=== PATIENT | female | born 1955 | race Caucasian/White ===

== ENCOUNTER 2016-06-19 16:22 | Observation (INO) | payer OTHER ==
--- NOTE | 2016-06-19 16:34 | EDPHY ---
H & P Time Seen by Provider: 06/19/16 16:26 HPI/ROS: HPI Chest tightness, shortness of breath. 61-year-old female by private vehicle. History of atrial fibrillation. Currently on Xarelto. Patient presents complaining of intermittent episodes of chest pressure and squeezing with associated shortness of breath. She has had this over the last 3-4 days. She has had this several times in the past. She currently takes Xarelto, metoprolol and Lasix. ROS: Constitutional: No fever, no chills. No weakness. Eyes: No discharge. No changes in vision. ENT: No sore throat. No nasal congestion or rhinorrhea. Respiratory: No cough. As above. Cardiac: As above, no palpitations. Gastrointestinal: No abdominal pain, no vomiting, no diarrhea. Genitourinary: No hematuria. No dysuria or increased frequency with urination. Musculoskeletal: No back pain. No neck pain. No myalgias or arthralgias. Skin: No rashes. Neurological: No headache. No focal weakness or altered sensation. Past medical history: Heart failure, schizophrenia, atrial fibrillation, uncontrolled diabetes. Noncompliance with medications and care. Hypertension, CVA without residual affects. Social history: Physical Exam: General Appearance: Alert, flat affect. This patient is responding to questions appropriately and in full sentences. This patient appears well- hydrated and well-nourished. Eyes: Pupils equal and round no pallor or injection. No lid edema, erythema or injection. Respiratory: There are no retractions, lungs are clear to auscultation with good air movement bilaterally. Cardiovascular: Irregular tachycardia. No murmur. Gastrointestinal: Abdomen is soft and nontender, no masses, bowel sounds normal. No focal tenderness at McBurney's point. No Campa sign. Neurological: Motor sensory function is grossly intact. Cranial nerves are normal. Gait is normal. Skin: Warm and dry, no rashes. Musculoskeletal: Neck is supple and nontender. Extremities are symmetrical. All joints range without pain or impingement. Psychiatric: No agitation. No depression. Database: EKG: EKG time is 4:52 p.m., EKG shows a narrow complex atrial fibrillation with rapid ventricular response rate of 133. Probable left ventricular hypertrophy. T-wave flattening and inversion noted in 2, 3, AVF, T-wave inversions in the lateral precordial leads V4, V5 and V6. Interpreted by me. Imaging: Chest x-ray PA and lateral; chronic CHF with interstitial pulmonary edema. No focal infiltrate. No pneumothorax. Interpreted by me. Procedures: Emergency department course: IV placed. Patient placed on a concreting supervisor. Patient started on IV normal saline with 250 cc to be given over the next hour. EKG performed. Patient given 324 mg of chewed aspirin. Patient will be given IV metoprolol and 5 mg boluses up 2 x 3 for rate control followed by 25 mg of oral metoprolol. She is currently taking metoprolol. 5:55 p.m., patient re-evaluated. Resting comfortably at this time. She has had 2 doses of IV metoprolol. Ventricular rate is now down to 105-107. She will be given a 3rd dose followed by 25 mg orally. Results of her diagnostic studies were discussed with her. She is significantly hyperglycemic but without acidosis. Her glucose is in the 600's. She was given 10 units of IV regular insulin. Plan for admission reviewed. All of her questions were answered. 6:30 p.m., spoke with hospitalist. Case discussed in detail. Patient accepted for admission to the hospitalist service. Patient admitted in stable and improved condition. Differential Diagnosis: The differential diagnosis on this patient includes but is not limited to atrial fibrillation with rapid ventricular response, acute coronary syndrome, DKA, pulmonary embolism, congestive heart failure. This represents a partial list of diagnoses considered. These considerations are based on history, physical exam, past history, reassessment and diagnostic testing. Smoking Status: Current every day smoker Constitutional: Initial Vital Signs Temperature (C) 36.7 C 06/19/16 16:26 Heart Rate 107 H 06/19/16 16:26 Respiratory Rate 18 06/19/16 16:26 Blood Pressure 143/115 H 06/19/16 16:26 O2 Sat (%) 96 06/19/16 16:26 O2 Delivery Mode Room Air Allergies/Adverse Reactions: morphine Allergy (Unknown, Verified 05/16/16 02:14) fluoxetine HCl [From Prozac] Allergy (Verified 05/16/16 02:14) risperidone [From Risperdal] Allergy (Verified 05/16/16 02:14) Sulfa (Sulfonamide Antibiotics) Allergy (Verified 05/16/16 02:14) Home Medications: Medication Instructions Recorded Furosemide [Lasix 40 MG (*)] 40 mg PO DAILY PRN #30 tab 06/20/16 Insulin Detemir [Levemir] 10 unit SQ HS #2 vial 06/20/16 Metoprolol Succinate Xr [Toprol Xl 25 mg PO DAILY #30 tab 06/20/16 25 mg (*)] Rivaroxaban [Xarelto] 20 mg PO DAILY #30 tab 06/20/16 Medical Decision Making - Data Points Laboratory Results: Laboratory Results 06/19/16 16:55 06/19/16 16:55 Medications Given: Discontinued Medications Aspirin (Aspirin) 324 mg PO EDNOW ONE Stop: 06/19/16 16:45 Last Admin: 06/19/16 17:00 Dose: 324 mg Sodium Chloride (Ns) 500 mls @ 0 mls/hr IV ONCE ONE PRN Reason: As Directed Stop: 06/19/16 16:45 Last Admin: 06/19/16 17:05 Dose: 500 mls Insulin Human Lispro (Humalog Lispro) 8 unit SC ONCE ONE Stop: 06/20/16 05:31 Last Admin: 06/20/16 06:06 Dose: 8 units Insulin Human Regular (Humulin R) 10 unit IVP EDNOW ONE Stop: 06/19/16 18:36 Last Admin: 06/19/16 18:54 Dose: 10 unit Metoprolol Tartrate (Lopressor Injection) 5 mg IVP Q5M MARCELLA Stop: 06/19/16 17:41 Last Admin: 06/19/16 18:00 Dose: 5 mg Metoprolol Tartrate (Lopressor) 25 mg PO EDNOW ONE Stop: 06/19/16 18:36 Last Admin: 06/19/16 18:53 Dose: 25 mg Potassium Chloride (Protocol Potassium) 1 dose MISC AD PRN; Protocol PRN Reason: Pt on Electrolyte Protocol Stop: 12/17/16 02:14 Last Admin: 06/20/16 03:14 Dose: 1 dose Potassium Chloride (Klor-Con) 40 meq PO ONCE ONE Stop: 06/20/16 04:01 Last Admin: 06/20/16 03:30 Dose: 40 meq Departure - Departure Disposition: [facility] Acute Clinical Impression: Dyspnea, Chest discomfort, Acute exacerbation of congestive heart failure, Atrial fibrillation with RVR, Hyperglycemia without ketosis, Elevated troponin
[2016-06-19] MEDS ORDERED: ASPIRIN 81 MG CHEWABLE TAB PO ONE (16:44)
[2016-06-19] MEDS ORDERED: NS 500 ML IV ONE (16:44)
--- NOTE | 2016-06-19 16:54 | CPEKG ---
Heart Rate: 133 RR Interval: 451 QRSD Interval: 84 QT Interval: 316 QTC Interval: 471 QRS [place]: 93 T Wave [place]: 192 EKG Severity - ABNORMAL ECG - EKG Impression: ATRIAL FIBRILLATION EKG Impression: RIGHT AXIS DEVIATION EKG Impression: CONSIDER LEFT VENTRICULAR HYPERTROPHY EKG Impression: ABNORMAL T, CONSIDER ISCHEMIA, ANT-LAT LEADS Electronically Signed By: Leonora Billings 19-Jun-2016 20:49:51
[2016-06-19 17:11] LABS: % IMMATURE GRANULYOCYTES 0.2 % (0.0-1.1); ABSOLUTE IMMATURE GRANULOCYTES 0.02 10^3/uL (0.00-0.10); ADD DIFF? NO; ADD MORPH? NO; ADD SCAN? NO; ATYPICAL LYMPHOCYTE FLAG 10 (0-99); FRAGMENT RBC FLAG 0 (0-99); HEMATOCRIT 43.2 % (38.0-47.0); LEFT SHIFT FLG 0 (0-99); LIPEMIA HEMOLYSIS FLAG 80 (0-99); MEAN CELL HEMOGLOBIN 29.1 pg (27.9-34.1); MEAN CELL HEMOGLOBIN CONCENTR. 32.4 g/dL (32.4-36.7); MEAN CELL VOLUME 89.8 fL (81.5-99.8); MEAN PLATELET VOLUME 11.8 fL (8.7-11.7); PLATELET CLUMPS FLAG 0 (0-99); PLATELET COUNT 225 10^3/uL (150-400); RED BLOOD CELL COUNT 4.81 10^6/uL (4.18-5.33); RED CELL DISTRIBUTION WIDTH 14.2 % (11.5-15.2)
--- NOTE | 2016-06-19 17:15 | DX ---
Portable Chest, 17:01 Clinical Indications: Chest pain Comparison: May 16, 2016 Findings: Cardiomegaly with interstitial lung disease (possibly interstitial pulmonary edema) remain s. There is no alveolar pulmonary edema, focal infiltrate or consolidation. There is no mass or adeno jaye. Impression: Suspect chronic CHF with interstitial pulmonary edema. Please note that the patient had a n ejection fraction of 36% on May 17, 2016.
[2016-06-19 17:27] LABS: APTT 29.2 SEC (23.0-38.0); INR 1.63 (0.83-1.16); PROTIME(PATIENT) 19.4 SEC (12.0-15.0)
[2016-06-19 17:30] LABS: ANION GAP 12 mEq/L (8-16); CALCIUM 9.3 mg/dL (8.5-10.4); CARBON DIOXIDE 25 mEq/l (22-31); CHLORIDE 97 mEq/L (97-110); CREATININE 0.6 mg/dL (0.6-1.0); GLOMERULAR FILTRATION RATE > 60; POTASSIUM 4.2 mEq/L (3.5-5.2); SODIUM 134 mEq/L (134-144)
[2016-06-19] MEDS: METOPROLOL TARTRATE 5 MG/5 ML INJ IVP SCH ×3 (17:30→18:00)
[2016-06-19 17:42] LABS: TROPONIN I 0.062 ng/mL (0-0.034)
[2016-06-19 17:58] LABS: GLUCOSE 626 mg/dL (70-100)
[2016-06-19] MEDS ORDERED: INSULIN REGULAR HUMAN 100 UNIT/ML IVP ONE (18:35)
[2016-06-19] MEDS ORDERED: METOPROLOL TARTRATE 25 MG TAB PO ONE (18:35)
[2016-06-19 20:52] VITALS: RESP 18
[2016-06-19] MEDS ORDERED: ONDANSETRON DISINTEGRATING 4 MG TAB PO PRN (23:06)
[2016-06-19] MEDS ORDERED: ONDANSETRON 4 MG/2 ML VIAL IVP PRN (23:06)
[2016-06-19] MEDS ORDERED: ACETAMINOPHEN 325 MG TAB PO PRN (23:06)
[2016-06-19] MEDS ORDERED: HYDROCODONE/APAP 5/325 TAB PO PRN (23:06)
[2016-06-19] MEDS ORDERED: ALBUTEROL 3 ML DEYVIAL IH PRN (23:06)
[2016-06-19] MEDS ORDERED: FUROSEMIDE 40 MG TAB PO PRN (23:08)
[2016-06-19] MEDS ORDERED: D50W 25 GM/50 ML SYR IVP PRN (23:10)
--- NOTE | 2016-06-20 00:10 | CPEKG ---
Heart Rate: 83 RR Interval: 723 QRSD Interval: 94 QT Interval: 392 QTC Interval: 461 QRS [place]: 100 T Wave [place]: 221 EKG Severity - ABNORMAL ECG - EKG Impression: ATRIAL FIBRILLATION EKG Impression: RIGHT AXIS DEVIATION EKG Impression: CONSIDER LEFT VENTRICULAR HYPERTROPHY EKG Impression: ABNORMAL T, PROBABLE ISCHEMIA, ANT-LAT LEADS Electronically Signed By: Monster Torres 20-Jun-2016 17:24:12
[2016-06-20] MEDS ORDERED: PROTOCOL POTASSIUM 1 DOSE MISC PRN (02:15)
[2016-06-20 03:09] LABS: % IMMATURE GRANULYOCYTES 0.1 % (0.0-1.1); ABSOLUTE IMMATURE GRANULOCYTES 0.01 10^3/uL (0.00-0.10); ADD DIFF? NO; ADD MORPH? NO; ADD SCAN? NO; ATYPICAL LYMPHOCYTE FLAG 10 (0-99); FRAGMENT RBC FLAG 0 (0-99); HEMATOCRIT 36.2 % (38.0-47.0); HEMOGLOBIN 11.7 g/dL (12.6-16.3); LEFT SHIFT FLG 0 (0-99); LIPEMIA HEMOLYSIS FLAG 80 (0-99); MEAN CELL HEMOGLOBIN 29.3 pg (27.9-34.1); MEAN CELL HEMOGLOBIN CONCENTR. 32.3 g/dL (32.4-36.7); MEAN CELL VOLUME 90.5 fL (81.5-99.8); MEAN PLATELET VOLUME 11.6 fL (8.7-11.7); PLATELET CLUMPS FLAG 20 (0-99); PLATELET COUNT 179 10^3/uL (150-400)
[2016-06-20] MEDS ORDERED: POTASSIUM CL 20 MEQ TAB ONE (03:09)
[2016-06-20 03:18] LABS: INR 1.36 (0.83-1.16); PROTIME(PATIENT) 16.8 SEC (12.0-15.0)
[2016-06-20 03:19] LABS: APTT 25.6 SEC (23.0-38.0)
[2016-06-20 03:29] LABS: GLUCOSE 313 mg/dL (70-100)
--- NOTE | 2016-06-20 03:45 | PDGENHP ---
History and Physical - Chief Complaint chest pain - History of Present Illness Patient is a 61-year-old female with history of schizophrenia, atrial fibrillation, on systemic anticoagulation, systolic CHF (EF 40%), type 2 diabetes uncontrolled and hypertension who presents to the ED complaining of chest pain. Patient states symptoms started this afternoon, describes pressure- like chest pain and palpitations, occasionally associated with shortness of breath. She denies any associated lightheadedness, headache, dizziness, fevers , chills, nausea or vomiting. Given persistence of symptoms, patient decided to come to the ED. She reports that she has been noncompliant with most of her medications including insulin over the last several days. On arrival to the ED patient was in AFib with RVR, but hemodynamically stable and afebrile. Labs revealed normal CBC, hyperglycemia with normal BMP, and troponin was indeterminately elevated. Patient was given IV metoprolol and heart rate improved, and she was admitted to the hospitalist service for further management. History Information - Allergies/Home Medication List Allergies/Adverse Reactions: morphine Allergy (Unknown, Verified 05/16/16 02:14) fluoxetine HCl [From Prozac] Allergy (Verified 05/16/16 02:14) risperidone [From Risperdal] Allergy (Verified 05/16/16 02:14) Sulfa (Sulfonamide Antibiotics) Allergy (Verified 05/16/16 02:14) Home Medications: Furosemide [Lasix 40 MG (*)] 40 mg PO DAILY PRN 06/19/16 [Last Taken 06/19/16 16 :00] I have personally reviewed and updated: family history, medical history, social history, surgical history - Past Medical History Additional medical history: Chronic schizophrenic. Atrial fibrillation. Chronic hypertension. Diabetes type 2. Systolic CHF. History CVA, no residual deficits - Surgical History Reports: no pertinent surgical hx - Family History Additional family history: Mother: Osteoporosis - Social History Smoking Status: Current every day smoker (1/2 pack per day times 20 years) Alcohol Use: None Drug Use: None Additional social history: Patient reports she lives alone in her mother's home. Review of Systems ROS: 10pt was reviewed & negative except for what was stated in HPI & below Physical Exam Temp Pulse Resp BP Pulse Ox 36.8 C 79 18 137/98 H 91 L 06/19/16 22:56 06/19/16 22:56 06/19/16 22:56 06/19/16 22:56 06/19/16 22:56 Constitutional: not in pain, other (Lethargic, but arousable to tactile stimuli) Eyes: PERRL, anicteric sclera, EOMI Ears, Nose, Mouth, Throat: moist mucous membranes, hearing normal, ears appear normal, no oral mucosal ulcers Cardiovascular: no murmur, rub, or gallop, irregularly irregular, pulses symmetric bilaterally, No JVD, No edema Peripheral Pulses: 2+: dorsalis-pedis (R), dorsalis-pedis (L) Respiratory: no respiratory distress, no rales or rhonchi, clear to auscultation Gastrointestinal: normoactive bowel sounds, soft, non-tender abdomen, no palpable masses, No guarding, No rebound Genitourinary: no bladder fullness, no bladder tenderness Skin: warm, normal color, no rashes or abrasions, no fluctuance, No mottled Musculoskeletal: full muscle strength, no muscle tenderness, normal joint ROM, no joint effusions Neurologic: other (Patient lethargic but arousable, CN II-XII grossly intact, strength in all extremities is equal, 5/5, sensation to light touch intact) Lab Data & Imaging Review 06/20/16 02:55 06/20/16 02:55 WBC 6.88 10^3/uL (3.80-9.50) 06/20/16 02:55 RBC 4.00 10^6/uL (4.18-5.33) L 06/20/16 02:55 Hgb 11.7 g/dL (12.6-16.3) L 06/20/16 02:55 POC Hgb 12.9 gm/dL (12.3-15.9) 06/19/16 20:05 Hct 36.2 % (38.0-47.0) L 06/20/16 02:55 POC Hct 38 % (35.5-47.5) 06/19/16 20:05 MCV 90.5 fL (81.5-99.8) 06/20/16 02:55 MCH 29.3 pg (27.9-34.1) 06/20/16 02:55 MCHC 32.3 g/dL (32.4-36.7) L 06/20/16 02:55 RDW 14.0 % (11.5-15.2) 06/20/16 02:55 Plt Count 179 10^3/uL (150-400) 06/20/16 02:55 MPV 11.6 fL (8.7-11.7) 06/20/16 02:55 Neut % (Auto) 58.1 % (39.3-74.2) 06/20/16 02:55 Lymph % (Auto) 31.4 % (15.0-45.0) 06/20/16 02:55 Walker % (Auto) 4.8 % (4.5-13.0) 06/20/16 02:55 Eos % (Auto) 4.7 % (0.6-7.6) 06/20/16 02:55 Baso % (Auto) 0.9 % (0.3-1.7) 06/20/16 02:55 Nucleat RBC Rel Count 0.0 % (0.0-0.2) 06/20/16 02:55 Absolute Neuts (auto) 4.00 10^3/uL (1.70-6.50) 06/20/16 02:55 Absolute Lymphs (auto) 2.16 10^3/uL (1.00-3.00) 06/20/16 02:55 Absolute Monos (auto) 0.33 10^3/uL (0.30-0.80) 06/20/16 02:55 Absolute Eos (auto) 0.32 10^3/uL (0.03-0.40) 06/20/16 02:55 Absolute Basos (auto) 0.06 10^3/uL (0.02-0.10) 06/20/16 02:55 Absolute Nucleated RBC 0.00 10^3/uL (0-0.01) 06/20/16 02:55 Immature Gran % 0.1 % (0.0-1.1) 06/20/16 02:55 Immature Gran # 0.01 10^3/uL (0.00-0.10) 06/20/16 02:55 PT 16.8 SEC (12.0-15.0) H 06/20/16 02:55 INR 1.36 (0.83-1.16) H 06/20/16 02:55 APTT 25.6 SEC (23.0-38.0) 06/20/16 02:55 D-Dimer 0.44 ug/mLFEU (0.00-0.50) 06/19/16 16:55 POC Sodium 142 mEq/L (134-144) 06/19/16 20:05 Sodium 134 mEq/L (134-144) 06/19/16 16:55 POC Potassium 3.2 mEq/L (3.3-5.0) L 06/19/16 20:05 Potassium 4.2 mEq/L (3.5-5.2) 06/19/16 16:55 POC Chloride 102 mEq/L (96-108) 06/19/16 20:05 Chloride 97 mEq/L (97-110) 06/19/16 16:55 Carbon Dioxide 25 mEq/l (22-31) 06/19/16 16:55 Anion Gap 12 mEq/L (8-16) 06/19/16 16:55 POC BUN 14 mg/dL (7-23) 06/19/16 20:05 BUN 16 mg/dL (7-23) 06/19/16 16:55 Creatinine 0.6 mg/dL (0.6-1.0) 06/19/16 16:55 POC Creatinine 0.7 mg/dL (0.6-1.2) 06/19/16 20:05 Estimated GFR > 60 06/19/16 16:55 Glucose 313 mg/dL (70-100) H 06/20/16 02:55 POC Glucose 295 mg/dL (70-100) H 06/19/16 20:05 Calcium 9.3 mg/dL (8.5-10.4) 06/19/16 16:55 Troponin I 0.064 ng/mL (0-0.034) H 06/20/16 00:25 NT-Pro-B Natriuret Pep 1570 pg/mL (0-125) H 06/19/16 16:55 Visualized and Interpreted Chest x-ray results: Yes Chest X-Ray results: no infiltrate, normal Visualized and Interpreted EKG results: Yes EKG additional interpertation: atrial fib with TWI in V4-V6 (old), LVH Assessment & Plan Assessment: Patient is a 61-year-old female with a history of systolic CHF, hypertension, atrial fibrillation, uncontrolled diabetes and chronic schizophrenia who presents to the ED complaining of chest pain, was found to be in AFib with RVR and significantly hyperglycemic. Plan: # chest pain, elevated troponin Patient describes an episode of chest pain prior to arrival which has resolved. Initial EKG is largely unchanged from priors, initial troponin is indeterminately elevated. Will rule out ACS with serial troponins and serial EKGs. Patient had nuclear stress test on 05/19 which was negative. Troponin leak is likely related to demand from tachycardia. # afib with RVR Patient reports to me that she has not been compliant with her home medications , which likely has triggered the RVR. Heart rate was controlled with IV metoprolol and resumption of her home dose. Patient reportedly on Xarelto, will continue this as an patient. # hyperglycemia, uncontrolled diabetes Recent A1c from 05/2016 reveals markedly uncontrolled diabetes, A1c is 14%. Patient reports that she does not take insulin at home because she does not want to. On arrival to the ED patient hyperglycemic to greater than 600, but without anion gap. Will check urinalysis for ketones. Will then resume home insulin regimen. # lethargy, acute encephalopathy Upon my evaluation patient is lethargic but arousable. She does not have any obvious focal deficits, but given on systemic anticoagulation will obtain CT head to rule out any acute intracranial abnormalities. # chronic systolic CHF Patient with mild check a edema of the lower extremities and x-ray evidence of mild pulmonary edema, but respiratory status is stable. Will resume home Lasix dosing and CHF med regimen. TTE from 1 month ago revealed improvement of ejection fraction to about 40%. # chronic schizophrenia Appears stable. # dispo: Admit to inpatient service for greater than 2 midnight stay # gen: NPO DVT ppx; on xarelto Full code
[2016-06-20] MEDS ORDERED: POTASSIUM CL 20 MEQ TAB PO ONE (04:00)
[2016-06-20] MEDS ORDERED: INSULIN LISPRO 100 UNIT/ML SC ONE (05:30)
[2016-06-20] MEDS ORDERED: INSULIN LISPRO 100 UNIT/ML SC SCH (08:00)
--- NOTE | 2016-06-20 08:06 | CT ---
CT Head Without Contrast History: Lethargy. Technique: Soft tissue and bone window evaluation is performed. Dose reduction techniques were utilized. Comparison: Prior exam June 24, 2012. Findings: The head CT is stable and normal. There is no evidence of hemorrhage, midline shift, hydrocephalus, subdural or subarachnoid hemorrhage. There is no intracranial edema. Ventricular size is consistent with the sulci. Skeletal evaluation reveals normally aerated paranasal and mastoid sinuses. Both middle ears are normally aerated. There is no pneumocephalus. Impression: Normal head CT. Results called to extension [id number] at 4:10 a.m. Final results are concordant with the initial interpretation. General information for patients regarding this examination can be found at [email or web address]. If you have questions or comments about this report, please contact me at (hospital) or [phone] (cell). [id number] MTDD
[2016-06-20 08:29] VITALS: BP 135/102; PULSE 82; TEMP 98.3; O2SAT 98
[2016-06-20] MEDS ORDERED: METOPROLOL SUCCINATE XR 25 MG TAB PO SCH (09:00)
[2016-06-20] MEDS ORDERED: RIVAROXABAN 20 MG TAB PO SCH (09:00)
[2016-06-20 09:17] LABS: ANION GAP 6 mEq/L (8-16); CALCIUM 9.1 mg/dL (8.5-10.4); CARBON DIOXIDE 27 mEq/l (22-31); CHLORIDE 108 mEq/L (97-110); CREATININE 0.6 mg/dL (0.6-1.0); GLOMERULAR FILTRATION RATE > 60; GLUCOSE 196 mg/dL (70-100); MAGNESIUM 1.7 mg/dL (1.6-2.3); POTASSIUM 4.1 mEq/L (3.5-5.2); SODIUM 141 mEq/L (134-144)
[2016-06-20 09:27] LABS: TROPONIN I 0.056 ng/mL (0-0.034)
[2016-06-20 09:35] LABS: HEMOGLOBIN A1C 16.1 % (4.0-6.0)
[2016-06-20] MEDS ORDERED: IPRATROPIUM/ALBUTEROL 3 ML DEYVIAL ONE (09:36)
--- NOTE | 2016-06-20 11:08 | PDIAF ---
- Diagnosis Diagnosis: systolic CHF, afib, uncontrolled diabetes, schizophrenia, non- compliance Code Status: Full Code - Medication Management Discharge Medications: Medications to Continue on Transfer Furosemide [Lasix 40 MG (*)] 40 mg PO DAILY PRN #30 tab 06/20/16 [Last Taken Unknown] Insulin Detemir [Levemir] 10 unit SQ HS #2 vial 06/20/16 [Last Taken Unknown] Metoprolol Succinate Xr [Toprol Xl 25 mg (*)] 25 mg PO DAILY #30 tab 06/20/16 [ Last Taken Unknown] Rivaroxaban [Xarelto] 20 mg PO DAILY #30 tab 06/20/16 [Last Taken Unknown] Discharge Medications: Refer to the Discharge Home Medication list for PRN reason. - Orders Services needed: Home Care, Registered Nurse, Master Vending Machine Mechanic (This patient is not taking any of her medications. Very high risk.), Occupational Therapy Home Care Face to Face: I certify that this patient was under my care and that I had the required [id number] encounter meeting the encounter requirements on the discharge day. My findings support the fact that the patient is homebound as defined in CMS Chapter 7 Medicare Benefits Manual 30.1.1, The condition of the patient is such that there exists a normal inability to leave home and consequently, leaving home would require a considerable and taxing effort. Diet Recommendation: sodium restricted, ADA 2200 consistent carb Weigh Patient: daily - Follow Up Care Current Providers and Referrals: eHllen Clark PA [Primary Care Provider] - As per Instructions Uli Phoenix MD [Medical Doctor] -
--- NOTE | 2016-06-21 04:36 | GDS ---
[f rep st] DISCHARGE SUMMARY DISCHARGE DIAGNOSES: 1. Rapid atrial fibrillation due to medication noncompliance. 2. Uncontrolled diabetes. Hemoglobin A1c of 16 due to noncompliance. 3. Chronic systolic congestive heart failure. Ejection fraction 35%. 4. Schizophrenia. 5. Transient chest pain with slight troponin bump due to strain of rapid atrial fibrillation. HISTORY OF PRESENT ILLNESS: The patient is a 61-year-old schizophrenic patient with atrial fibrillat ion and congestive heart failure, ejection fraction 35%. 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 She has a long-standing history of noncompliance and hemoglobin A1c here is 16. We spoke to her pharmacy and she has not refilled her insulin for a year. She was very hyperglycemic but was not in DKA at presentation. She presented in rapid atrial fibrillation likely due to medication non compliance. HOSPITAL COURSE: We started her on her medications as prescribed and she rapidly improved back to ba seline. She did have some transient chest pain and slight troponin bump although repeat stress testi ng was not felt to be needed given the fact she had a negative stress test only 1 month ago. The patient was counseled regarding her noncompliance. She states her reason for not taking her medi cations is that she does not feel any different whether she takes them or not. She was counseled at length regarding the silent nature of some of these conditions until the situation becomes critical. She also has a recent history of recurrent hospitalizations due to this noncompliance. I worked brittney costa with case management to try to improve her support in the outpatient setting. We do have an erin ointment set up for her at [facility] tomorrow morning and hopefully she will attend and get re- initiated on her insulin regimen. We also scheduled close outpatient followup with Dr. Phoenix for [facility] CHF management. DISCHARGE MEDICATIONS: Please see computer record for full detailed list. No new medications were g iven at hospital discharge although she was refilled on her chronic medications includin. Lasix 40 mg p.o. daily as needed. 2. Levemir insulin 10 units subcu at bedtime. 3. Toprol-XL 25 mg p.o. daily. 4. Xarelto 20 mg p.o. daily. ADDITIONAL DISCHARGE INSTRUCTIONS: 1. Follow up with [facility] tomorrow morning at 9 am with Hellen Clark, primary care. 2. Follow up with Dr. Uli Phoenix in Cardiology. 3. I attempted to arrange home health. 4. Continue to follow up monthly for IM Depo antipsychotic medications. Patient was seen and examined by me on the day of discharge. /[id number]/MODL
== END 2016-06-20 14:42 | disposition home health service (06) ==
LOC: INTOOBSV 18:46 → F2W 20:23
PROVIDERS: ADMIT Hospitalist; ATTEND Internal Medicine
DX: I48.91 Unspecified atrial fibrillation (principal); Z91.14 Patient's other noncompliance with medication regimen; I50.22 Chronic systolic (congestive) heart failure; E11.65 Type 2 diabetes mellitus with hyperglycemia; R07.89 Other chest pain; R53.83 Other fatigue; R06.00 Dyspnea, unspecified; R79.89 Other specified abnormal findings of blood chemistry; F20.9 Schizophrenia, unspecified; I42.9 Cardiomyopathy, unspecified; I10 Essential (primary) hypertension; F17.200 Nicotine dependence, unspecified, uncomplicated; Z88.2 Allergy status to sulfonamides; Z79.01 Long term (current) use of anticoagulants; Z86.73 Personal history of transient ischemic attack (TIA), and cerebral infarction without residual deficits; Z82.62 Family history of osteoporosis
CPT/HCPCS: 70450; 71010; 93005; 96361; 96374; 96375; 99285; J1815; 82947-QW

== ENCOUNTER 2016-06-27 16:18 | Emergency (ER) | payer OTHER ==
[2016-06-27] MEDS ORDERED: NS 1,000 ML IV ONE (16:30)
--- NOTE | 2016-06-27 16:38 | EDPHY ---
H & P Time Seen by Provider: 06/27/16 16:22 HPI/ROS: HPI Hyperglycemia. 61-year-old female by private vehicle. This patient has a history of schizophrenia, type 1 diabetes and atrial fibrillation. She has a history of being noncompliant with her medications. She was just admitted to the hospital for complaint of chest pain. She was admitted on June 19 and discharged on June 20. I received a call from her primary care physician Dr. Pickens stating that the patient was very hyperglycemic but not acidotic. Dr. Pickens said that her hemoglobin A1c is 16. Dr. Pickens had given her 40 units total of regular insulin. The patient received 10 units at 12:45 p.m. and another 30 units at 2:30 p.m.. Despite this her blood sugars remained too high to read. Dr. Pilar Romero sent her to the emergency department to have her hyperglycemia treated. Dr. Pickens has arrange for close follow-up in clinic tomorrow to review police her outpatient medication dosing. ROS: Constitutional: No fever, no chills. No weakness. Eyes: No discharge. No changes in vision. ENT: No sore throat. No nasal congestion or rhinorrhea. Respiratory: No cough. No shortness of breath. Cardiac: No chest pain, no palpitations. Gastrointestinal: No abdominal pain, no vomiting, no diarrhea. Genitourinary: No hematuria. No dysuria or increased frequency with urination. Musculoskeletal: No back pain. No neck pain. No myalgias or arthralgias. Skin: No rashes. Neurological: No headache. No focal weakness or altered sensation. Past medical history: Atrial fibrillation with RVR secondary to medication noncompliance, uncontrolled diabetes with history of medication noncompliance, chronic systolic congestive heart failure with an ejection fraction of 35%, schizophrenia. Social history: Smoker. Denies IV drugs or street drugs. Denies alcohol. Lives alone in her mother's home. Physical Exam: General Appearance: Alert, no distress. This patient is responding to questions appropriately and in full sentences. This patient appears well- hydrated and well-nourished. Eyes: Pupils equal and round no pallor or injection. No lid edema, erythema or injection. Respiratory: There are no retractions, lungs are clear to auscultation with good air movement bilaterally. Cardiovascular: Regular rate and rhythm. No murmur. Gastrointestinal: Abdomen is soft and nontender, no masses, bowel sounds normal. No focal tenderness at McBurney's point. No Campa sign. Neurological: Motor sensory function is grossly intact. Cranial nerves are normal. Gait is normal. Skin: Warm and dry, no rashes. Musculoskeletal: Neck is supple and nontender. Extremities are symmetrical. All joints range without pain or impingement. Psychiatric: No agitation. No depression. Database: EKG: Imaging: Procedures: Emergency department course: IV placed. She was placed on a monitor. She was started on IV normal saline with 1 L to be given over the next hour. DKA blood work will be obtained. 4:50 p.m., i-STAT glucose 391, potassium 3.7. Patient will be given 10 units of IV regular insulin and a 1 L of fluid as above and sugar will be rechecked. Dr. Celio welch discussed follow-up. 5:00 p.m., spoke with Dr. Pickens. Electrolytes and plan for IV hydration an additional 10 units of IV regular insulin discussed. Plan for follow-up tomorrow: Patient has an appointment at 8:45 a.m. at [facility]. An RN will meet her at that appointment and have all of her medications plus dosing instructions. She will be prescribed long-acting metformin as well as Lantus at that time. No additional insulin other than noted above will be provided to her tonight. 5:55 p.m., patient re-evaluated. Repeat blood sugar is 259. She feels comfortable being discharged. She understands for follow-up as above. Return to emergency department precautions have been discussed with her. All of her questions were answered. She was discharged in good condition. Differential Diagnosis: The differential diagnosis on this patient includes but is not limited to hyperglycemia without ketoacidosis, dehydration, medication noncompliance. Diabetic ketoacidosis unlikely. This represents a partial list of diagnoses considered. These considerations are based on history, physical exam, past history, reassessment and diagnostic testing. Smoking Status: Current every day smoker Constitutional: Initial Vital Signs Temperature (C) 36.8 C 06/27/16 16:22 Heart Rate 89 06/27/16 16:22 Respiratory Rate 18 06/27/16 16:22 Blood Pressure 102/68 06/27/16 16:22 O2 Sat (%) 95 06/27/16 16:22 O2 Delivery Mode Room Air Allergies/Adverse Reactions: morphine Allergy (Unknown, Verified 05/16/16 02:14) fluoxetine HCl [From Prozac] Allergy (Verified 05/16/16 02:14) risperidone [From Risperdal] Allergy (Verified 05/16/16 02:14) Sulfa (Sulfonamide Antibiotics) Allergy (Verified 05/16/16 02:14) Home Medications: Medication Instructions Recorded Furosemide [Lasix 40 MG (*)] 40 mg PO DAILY PRN #30 tab 06/20/16 Insulin Detemir [Levemir] 10 unit SQ HS #2 vial 06/20/16 Metoprolol Succinate Xr [Toprol Xl 25 mg PO DAILY #30 tab 06/20/16 25 mg (*)] Rivaroxaban [Xarelto] 20 mg PO DAILY #30 tab 06/20/16 Medical Decision Making - Data Points Laboratory Results: Laboratory Results 06/27/16 16:37 06/27/16 16:37 06/27/16 06/27/16 17:36 16:37 WBC 11.45 H 10^3/uL (3.80-9.50) RBC 4.86 10^6/uL (4.18-5.33) Hgb 13.7 g/dL (12.6-16.3) POC Hgb 15.3 gm/dL (12.3-15.9) Hct 43.0 % (38.0-47.0) POC Hct 45 % (35.5-47.5) MCV 88.5 fL (81.5-99.8) MCH 28.2 pg (27.9-34.1) MCHC 31.9 L g/dL (32.4-36.7) RDW 14.3 % (11.5-15.2) Plt Count 270 10^3/uL (150-400) MPV 11.3 fL (8.7-11.7) Neut % (Auto) 76.4 H % (39.3-74.2) Lymph % (Auto) 16.4 % (15.0-45.0) [place] % (Auto) 3.8 L % (4.5-13.0) Eos % (Auto) 2.4 % (0.6-7.6) Baso % (Auto) 0.5 % (0.3-1.7) Nucleat RBC Rel Count 0.0 % (0.0-0.2) Absolute Neuts (auto) 8.75 H 10^3/uL (1.70-6.50) Absolute Lymphs (auto) 1.88 10^3/uL (1.00-3.00) Absolute Monos (auto) 0.43 10^3/uL (0.30-0.80) Absolute Eos (auto) 0.27 10^3/uL (0.03-0.40) Absolute Basos (auto) 0.06 10^3/uL (0.02-0.10) Absolute Nucleated RBC 0.00 10^3/uL (0-0.01) Immature Gran % 0.5 % (0.0-1.1) Immature Gran # 0.06 10^3/uL (0.00-0.10) POC Sodium 138 mEq/L (134-144) Sodium 136 mEq/L (134-144) POC Potassium 3.7 mEq/L (3.3-5.0) Potassium 4.0 mEq/L (3.5-5.2) POC Chloride 98 mEq/L (96-108) Chloride 98 mEq/L (97-110) Carbon Dioxide 25 mEq/l (22-31) Anion Gap 13 mEq/L (8-16) POC BUN 23 mg/dL (7-23) BUN 23 mg/dL (7-23) Creatinine 0.9 mg/dL (0.6-1.0) POC Creatinine 0.8 mg/dL (0.6-1.2) Estimated GFR > 60 Glucose 396 H mg/dL (70-100) POC Glucose 259 H mg/dL 391 H mg/dL (70-100) (70-100) Calcium 9.4 mg/dL (8.5-10.4) Phosphorus 3.4 mg/dL (2.5-4.5) Magnesium 1.9 mg/dL (1.6-2.3) Beta-Hydroxybutyrate 0.21 mmol/L (0.02-0.27) Medications Given: Discontinued Medications Sodium Chloride (Ns) 1,000 mls @ 0 mls/hr IV ONCE ONE PRN Reason: Wide Open Stop: 06/27/16 16:31 Last Admin: 06/27/16 16:48 Dose: 1,000 mls Insulin Human Regular (Humulin R) 10 unit IVP EDNOW ONE Stop: 06/27/16 16:50 Last Admin: 06/27/16 17:03 Dose: 10 i.unit Point of Care Test Results: 06/27/16 06/27/16 16:37 17:36 POC Sodium 138 POC Potassium 3.7 POC Chloride 98 POC BUN 23 POC Creatinine 0.8 POC Glucose 391 H 259 H Departure - Departure Disposition: Home, Routine, Self-Care Clinical Impression: Hyperglycemia, Schizophrenia, Noncompliance with medication regimen, History of diabetes mellitus Condition: Good Instructions: Type 1 Diabetes in Adults (ED) Additional Instructions: Read and follow provided instructions. Follow-up at [facility] tomorrow at 8:45 a.m. as scheduled for your appointment. A nurse will meet you there and have your medications and prescriptions as well as dosing instructions ready for you. This nurse will review all of your medication dosing instructions with you. Take medication as prescribed. Return to the emergency department for worsening symptoms or other serious concerns. Referrals: Hellen Clark PA [Primary Care Provider] - As per Instructions [facility] [Outside] - As per Instructions
[2016-06-27] MEDS ORDERED: INSULIN REGULAR HUMAN 100 UNIT/ML IVP ONE (16:49)
[2016-06-27 16:58] LABS: % IMMATURE GRANULYOCYTES 0.5 % (0.0-1.1); ABSOLUTE IMMATURE GRANULOCYTES 0.06 10^3/uL (0.00-0.10); ADD DIFF? NO; ADD MORPH? NO; ADD SCAN? NO; ATYPICAL LYMPHOCYTE FLAG 10 (0-99); FRAGMENT RBC FLAG 0 (0-99); HEMOGLOBIN 13.7 g/dL (12.6-16.3); LEFT SHIFT FLG 0 (0-99); LIPEMIA HEMOLYSIS FLAG 80 (0-99); MEAN CELL HEMOGLOBIN 28.2 pg (27.9-34.1); MEAN CELL HEMOGLOBIN CONCENTR. 31.9 g/dL (32.4-36.7); MEAN CELL VOLUME 88.5 fL (81.5-99.8); MEAN PLATELET VOLUME 11.3 fL (8.7-11.7); PLATELET CLUMPS FLAG 0 (0-99); PLATELET COUNT 270 10^3/uL (150-400); RED BLOOD CELL COUNT 4.86 10^6/uL (4.18-5.33); RED CELL DISTRIBUTION WIDTH 14.3 % (11.5-15.2)
[2016-06-27 17:05] VITALS: RESP 12; O2SAT 94
[2016-06-27 17:16] LABS: ANION GAP 13 mEq/L (8-16); CALCIUM 9.4 mg/dL (8.5-10.4); CARBON DIOXIDE 25 mEq/l (22-31); CHLORIDE 98 mEq/L (97-110); CREATININE 0.9 mg/dL (0.6-1.0); GLOMERULAR FILTRATION RATE > 60; GLUCOSE 396 mg/dL (70-100); MAGNESIUM 1.9 mg/dL (1.6-2.3); SODIUM 136 mEq/L (134-144)
[2016-06-27 17:53] LABS: B-HYDROXYBUTYRATE 0.21 mmol/L (0.02-0.27)
[2016-06-27 18:14] VITALS: BP 134/93; PULSE 95; TEMP 98.6
== END 2016-06-27 18:39 | disposition home or self-care (01) ==
DX: E11.65 Type 2 diabetes mellitus with hyperglycemia (principal); F20.9 Schizophrenia, unspecified; I50.9 Heart failure, unspecified; Z79.4 Long term (current) use of insulin; Z91.14 Patient's other noncompliance with medication regimen
CPT/HCPCS: 96361; 96374; 99284; J1815; 82947-QW

== ENCOUNTER 2016-07-04 03:23 | Inpatient (IN) | payer OTHER ==
[2016-07-04] MEDS ORDERED: IPRATROPIUM/ALBUTEROL 3 ML DEYVIAL ONE (03:38)
[2016-07-04] MEDS ORDERED: IPRATROPIUM/ALBUTEROL 3 ML DEYVIAL IH ONE (03:40)
--- NOTE | 2016-07-04 03:54 | EDPHY ---
HPI/HX/ROS/PE/MDM Narrative: Chief complaint: Cough, shortness of breath HPI: 61-year-old woman with a history of schizophrenia, atrial fibrillation congestive heart failure with unknown ejection fraction 35%. She has recently admitted to this hospital and discharged about a week ago. She states she has been compliant with her medications since that time. She has a history of noncompliance in the past. She is presenting complaining of worsening shortness of breath and cough for the last month. She states that she gets up at night and feels short of breath walks around usually feels better. She has been doing this with since her discharge with this morning was not feeling any better. States that her son has not changed dramatically since she was in the hospital. States she has been going to [facility] for confirmation she has been taking her medications as been getting these every day. Denies any fevers or chills. Has producing a cough but is not looked at the color of her sputum. Nausea or vomiting. No chest pain. No worsening swelling. ROS: 10 point Review of Systems is negative except as noted in the HPI. Past medical history: Atrial fibrillation Diabetes Congestive heart failure with an ejection fraction of 35% Schizophrenia Medications: Lasix 40 mg daily Levemir insulin 10 units at night Toprol XL 25 mg daily Xarelto 20 mg daily Physical exam: Gen: Awake, Alert, No Distress HEENT: Nose: no rhinorrhea Eyes: PERRLA, EOMI Mouth: Moist mucosa Neck: Supple, no JVD Chest: nontender, diffuse expiratory wheezing, diminished breath sounds to bilateral bases, crepitus at the left base Heart: S1, S2 normal, no murmur Abd: Soft, non-tender, no guarding Back: no CVA tenderness, no midline tenderness Ext: 1+ bilateral edema, pitting, non-tender Skin: no rash Neuro: CN II-XII intact, Sensation grossly intact, Strength 5/5 in bilateral upper and lower extremities ED Course: 61-year-old with a history of schizophrenia, atrial fibrillation and CHF presenting with shortness of breath, wheezing, and some rales at the bases. She has some moderate work of breathing. She is tachycardic with atrial fibrillation with RVR with a rate in the 120s. She does have some 1+ pitting edema as well. She has been compliant with her medications for the past week. Will check chemistry, CBC and chest x-ray. Will get albuterol neb. Re- evaluate. Chest x-ray: This PA chest film shows some cephalization. There is no infiltrate. There is no effusion. There is some cardiomegaly. Is largely unchanged from the AP film of a week ago. Patient's oxygen saturations dropped to the mid 80s on room air. She has restarted back up to 1 L nasal cannula. Chest x-ray here showed no significant interval change from her last admission. Does have some mild edema. Case discussed with Dr. Duvall, hospitalist. She will admit to telemetry, observation for further management and care. EC atrial fibrillation with a rate of 117. ST depression in V5 and V6 which could be related to related. No other acute ST or T-wave changes. - Data Points Laboratory Results: Laboratory Results 07/04/16 03:57 07/04/16 03:57 07/04/16 03:57 WBC 7.85 10^3/uL (3.80-9.50) RBC 4.36 10^6/uL (4.18-5.33) Hgb 12.6 g/dL (12.6-16.3) Hct 40.0 % (38.0-47.0) MCV 91.7 fL (81.5-99.8) MCH 28.9 pg (27.9-34.1) MCHC 31.5 L g/dL (32.4-36.7) RDW 14.6 % (11.5-15.2) Plt Count 215 10^3/uL (150-400) MPV 11.3 fL (8.7-11.7) Neut % (Auto) 71.8 % (39.3-74.2) Lymph % (Auto) 17.2 % (15.0-45.0) [place] % (Auto) 6.4 % (4.5-13.0) Eos % (Auto) 3.7 % (0.6-7.6) Baso % (Auto) 0.6 % (0.3-1.7) Nucleat RBC Rel Count 0.0 % (0.0-0.2) Absolute Neuts (auto) 5.64 10^3/uL (1.70-6.50) Absolute Lymphs (auto) 1.35 10^3/uL (1.00-3.00) Absolute Monos (auto) 0.50 10^3/uL (0.30-0.80) Absolute Eos (auto) 0.29 10^3/uL (0.03-0.40) Absolute Basos (auto) 0.05 10^3/uL (0.02-0.10) Absolute Nucleated RBC 0.00 10^3/uL (0-0.01) Immature Gran % 0.3 % (0.0-1.1) Immature Gran # 0.02 10^3/uL (0.00-0.10) Sodium 141 mEq/L (134-144) Potassium 3.8 mEq/L (3.5-5.2) Chloride 104 mEq/L (97-110) Carbon Dioxide 30 mEq/l (22-31) Anion Gap 7 mEq/L (8-16) BUN 25 H mg/dL (7-23) Creatinine 0.6 mg/dL (0.6-1.0) Estimated GFR > 60 Glucose 202 H mg/dL (70-100) Calcium 9.2 mg/dL (8.5-10.4) Troponin I Pending NT-Pro-B Natriuret Pep Pending General Time Seen by Provider: 07/04/16 03:33 Initial Vital Signs: Initial Vital Signs Temperature (C) 36.7 C 07/04/16 03:28 Heart Rate 140 H 07/04/16 03:28 Respiratory Rate 18 07/04/16 03:28 Blood Pressure 130/98 H 07/04/16 03:28 O2 Sat (%) 91 L 07/04/16 03:28 O2 Delivery Mode Room Air O2 (L/minute) 1 Allergies/Adverse Reactions: morphine Allergy (Unknown, Verified 07/04/16 03:27) fluoxetine HCl [From Prozac] Allergy (Verified 07/04/16 03:27) risperidone [From Risperdal] Allergy (Verified 07/04/16 03:27) Sulfa (Sulfonamide Antibiotics) Allergy (Verified 07/04/16 03:27) Home Medications: Medication Instructions Recorded Furosemide [Lasix 40 MG (*)] 40 mg PO DAILY PRN #30 tab 06/20/16 Insulin Detemir [Levemir] 10 unit SQ HS #2 vial 06/20/16 Metoprolol Succinate Xr [Toprol Xl 25 mg PO DAILY #30 tab 06/20/16 25 mg (*)] Rivaroxaban [Xarelto] 20 mg PO DAILY #30 tab 06/20/16 Departure - Departure Disposition: [facility] Inpatient Acute Clinical Impression: CHF (congestive heart failure), Atrial fibrillation with RVR Condition: Fair Referrals: Ramone Mcnulty MD [Primary Care Provider] - As per Instructions
[2016-07-04 04:14] LABS: % IMMATURE GRANULYOCYTES 0.3 % (0.0-1.1); ABSOLUTE IMMATURE GRANULOCYTES 0.02 10^3/uL (0.00-0.10); ADD DIFF? NO; ADD MORPH? NO; ADD SCAN? NO; ATYPICAL LYMPHOCYTE FLAG 20 (0-99); FRAGMENT RBC FLAG 0 (0-99); HEMOGLOBIN 12.6 g/dL (12.6-16.3); LEFT SHIFT FLG 0 (0-99); LIPEMIA HEMOLYSIS FLAG 80 (0-99); MEAN CELL HEMOGLOBIN 28.9 pg (27.9-34.1); MEAN CELL HEMOGLOBIN CONCENTR. 31.5 g/dL (32.4-36.7); MEAN CELL VOLUME 91.7 fL (81.5-99.8); MEAN PLATELET VOLUME 11.3 fL (8.7-11.7); PLATELET CLUMPS FLAG 0 (0-99); PLATELET COUNT 215 10^3/uL (150-400); RED BLOOD CELL COUNT 4.36 10^6/uL (4.18-5.33); RED CELL DISTRIBUTION WIDTH 14.6 % (11.5-15.2)
[2016-07-04 04:22] LABS: ANION GAP 7 mEq/L (8-16); CALCIUM 9.2 mg/dL (8.5-10.4); CARBON DIOXIDE 30 mEq/l (22-31); CHLORIDE 104 mEq/L (97-110); CREATININE 0.6 mg/dL (0.6-1.0); GLOMERULAR FILTRATION RATE > 60; GLUCOSE 202 mg/dL (70-100); POTASSIUM 3.8 mEq/L (3.5-5.2); SODIUM 141 mEq/L (134-144)
[2016-07-04 04:53] LABS: TROPONIN I 0.028 ng/mL (0-0.034)
--- NOTE | 2016-07-04 05:25 | CPEKG ---
Heart Rate: 117 RR Interval: 513 QRSD Interval: 88 QT Interval: 352 QTC Interval: 491 QRS [place]: 87 T Wave [place]: -22 EKG Severity - ABNORMAL ECG - EKG Impression: ATRIAL FIBRILLATION, V-RATE 90-170 EKG Impression: BORDERLINE RIGHT AXIS DEVIATION EKG Impression: CONSIDER LEFT VENTRICULAR HYPERTROPHY EKG Impression: BORDERLINE T ABNORMALITIES, INFERIOR LEADS EKG Impression: BORDERLINE PROLONGED QT INTERVAL Electronically Signed By: Donnie Armendariz 04-Jul-2016 07:08:14
[2016-07-04] MEDS ORDERED: ONDANSETRON 4 MG/2 ML VIAL IVP PRN (05:36)
[2016-07-04] MEDS ORDERED: LORazepam 0.5 MG TAB PO PRN (05:36)
[2016-07-04] MEDS ORDERED: ALBUTEROL 3 ML DEYVIAL IH PRN (05:36)
[2016-07-04] MEDS ORDERED: HYDROCODONE/APAP 5/325 TAB PO PRN (05:36)
[2016-07-04] MEDS ORDERED: ONDANSETRON DISINTEGRATING 4 MG TAB PO PRN (05:36)
[2016-07-04] MEDS ORDERED: D50W 25 GM/50 ML SYR IVP PRN (05:38)
[2016-07-04] MEDS ORDERED: PROTOCOL MAGNESIUM 1 DOSE IV PRN (05:40)
[2016-07-04] MEDS ORDERED: PROTOCOL POTASSIUM 1 DOSE MISC PRN (05:40)
[2016-07-04] MEDS: FUROSEMIDE 40 MG/4 ML VIAL IVP SCH ×4 (06:02→15:18)
[2016-07-04] MEDS: IPRATROPIUM/ALBUTEROL 3 ML DEYVIAL IH SCH ×4 (06:17→21:07)
[2016-07-04 06:29] LABS: MAGNESIUM 1.7 mg/dL (1.6-2.3); POTASSIUM 3.8 mEq/L (3.5-5.2)
[2016-07-04] MEDS ORDERED: POTASSIUM CL 10 MEQ TAB PO ONE ×2 (06:45→19:08)
[2016-07-04] MEDS ORDERED: MAGNESIUM SULF 1 GM/DEXTROSE 100 ML IV ONE (06:45)
[2016-07-04] MEDS: INSULIN LISPRO 100 UNIT/ML SC SCH ×3 (07:59→17:35)
--- NOTE | 2016-07-04 08:06 | PDGENHP ---
History and Physical - Chief Complaint shortness of breath - History of Present Illness Patient is a 61-year-old female with history of schizophrenia, atrial fibrillation, on systemic anticoagulation, systolic CHF (EF 40%), type 2 diabetes uncontrolled and hypertension who presents to the ED complaining of shortness of breath. Patient was recently admitted for chest pain and Afib with rvr due to medication noncompliance, discharged about 2 weeks ago. Since discharge, patient reports compliance with her prescribed medications and goes daily to her outpt clinic for her daily insulin injection. Despite medication compliance, patient states for the past 2 days she has been experiencing increased shortness of breath, orthopnea and cough. She denies any associated fevers, chills, chest pain or palpitations. On arrival to the ED, patient was tachycardic, in afib w rvr to the 140 range, slightly hypoxic on room air. Labs revealed normal CBC, BMP, indeterminant trop and elevated BNP. CXR did not reveal any acute infiltrate, mild cephalization. Patient was then admitted to the hospitalist service for further management. History Information - Allergies/Home Medication List Allergies/Adverse Reactions: morphine Allergy (Unknown, Verified 07/04/16 03:27) fluoxetine HCl [From Prozac] Allergy (Verified 07/04/16 03:27) risperidone [From Risperdal] Allergy (Verified 07/04/16 03:27) Sulfa (Sulfonamide Antibiotics) Allergy (Verified 07/04/16 03:27) I have personally reviewed and updated: family history, medical history, social history, surgical history - Past Medical History Additional medical history: Chronic schizophrenic. Atrial fibrillation. Chronic hypertension. Diabetes type 2. Systolic CHF. History CVA, no residual deficits. Chronic tobacco use - Surgical History Reports: no pertinent surgical hx - Family History Positive for: non-pertinent Additional family history: Mother: Osteoporosis - Social History Smoking Status: Current every day smoker (1/2 PPD daily x > 20 years) Alcohol Use: None Drug Use: None Additional social history: Patient reports she lives alone in her mother's home. Review of Systems ROS: 10pt was reviewed & negative except for what was stated in HPI & below Physical Exam Temp Pulse Resp BP Pulse Ox 36.8 C 95 19 124/82 H 97 07/04/16 07:44 07/04/16 07:44 07/04/16 07:44 07/04/16 07:44 07/04/16 07:44 O2 (L/minute) 2 Constitutional: no apparent distress, appears nourished, not in pain Eyes: PERRL, anicteric sclera, EOMI Ears, Nose, Mouth, Throat: moist mucous membranes, hearing normal, ears appear normal, no oral mucosal ulcers Cardiovascular: no murmur, rub, or gallop, irregularly irregular, pulses symmetric bilaterally, edema (trace b/l lower extremity edema), No JVD Peripheral Pulses: 2+: dorsalis-pedis (R), dorsalis-pedis (L) Respiratory: no respiratory distress, no rales or rhonchi, expiratory wheeze Gastrointestinal: normoactive bowel sounds, soft, non-tender abdomen, no palpable masses Genitourinary: no bladder fullness, no bladder tenderness Skin: warm, normal color, no rashes or abrasions, no fluctuance, No mottled Musculoskeletal: full muscle strength, no muscle tenderness, normal joint ROM, no joint effusions Neurologic: AAOx3, sensation intact bilaterally, CN II-XII Intact, No weakness, No numbness Psychiatric: interacting appropriately, not anxious, not encephalopathic, thought process linear Lab Data & Imaging Review 07/04/16 03:57 07/04/16 05:51 WBC 7.85 10^3/uL (3.80-9.50) 07/04/16 03:57 RBC 4.36 10^6/uL (4.18-5.33) 07/04/16 03:57 Hgb 12.6 g/dL (12.6-16.3) 07/04/16 03:57 Hct 40.0 % (38.0-47.0) 07/04/16 03:57 MCV 91.7 fL (81.5-99.8) 07/04/16 03:57 MCH 28.9 pg (27.9-34.1) 07/04/16 03:57 MCHC 31.5 g/dL (32.4-36.7) L 07/04/16 03:57 RDW 14.6 % (11.5-15.2) 07/04/16 03:57 Plt Count 215 10^3/uL (150-400) 07/04/16 03:57 MPV 11.3 fL (8.7-11.7) 07/04/16 03:57 Neut % (Auto) 71.8 % (39.3-74.2) 07/04/16 03:57 Lymph % (Auto) 17.2 % (15.0-45.0) 07/04/16 03:57 [place] % (Auto) 6.4 % (4.5-13.0) 07/04/16 03:57 Eos % (Auto) 3.7 % (0.6-7.6) 07/04/16 03:57 Baso % (Auto) 0.6 % (0.3-1.7) 07/04/16 03:57 Nucleat RBC Rel Count 0.0 % (0.0-0.2) 07/04/16 03:57 Absolute Neuts (auto) 5.64 10^3/uL (1.70-6.50) 07/04/16 03:57 Absolute Lymphs (auto) 1.35 10^3/uL (1.00-3.00) 07/04/16 03:57 Absolute Monos (auto) 0.50 10^3/uL (0.30-0.80) 07/04/16 03:57 Absolute Eos (auto) 0.29 10^3/uL (0.03-0.40) 07/04/16 03:57 Absolute Basos (auto) 0.05 10^3/uL (0.02-0.10) 07/04/16 03:57 Absolute Nucleated RBC 0.00 10^3/uL (0-0.01) 07/04/16 03:57 Immature Gran % 0.3 % (0.0-1.1) 07/04/16 03:57 Immature Gran # 0.02 10^3/uL (0.00-0.10) 07/04/16 03:57 Sodium 141 mEq/L (134-144) 07/04/16 03:57 Potassium 3.8 mEq/L (3.5-5.2) 07/04/16 05:51 Chloride 104 mEq/L (97-110) 07/04/16 03:57 Carbon Dioxide 30 mEq/l (22-31) 07/04/16 03:57 Anion Gap 7 mEq/L (8-16) 07/04/16 03:57 BUN 25 mg/dL (7-23) H 07/04/16 03:57 Creatinine 0.6 mg/dL (0.6-1.0) 07/04/16 03:57 Estimated GFR > 60 07/04/16 03:57 Glucose 202 mg/dL (70-100) H 07/04/16 03:57 POC Glucose 174 mg/dL (70-100) H 07/04/16 07:34 Calcium 9.2 mg/dL (8.5-10.4) 07/04/16 03:57 Magnesium 1.7 mg/dL (1.6-2.3) 07/04/16 05:51 Troponin I 0.030 ng/mL (0-0.034) 07/04/16 05:51 NT-Pro-B Natriuret Pep 1090 pg/mL (0-125) H 07/04/16 03:57 Visualized and Interpreted Chest x-ray results: Yes Chest X-Ray results: other (mild cephalization) Visualized and Interpreted EKG results: Yes EKG additional interpertation: afib to 117, no obvious st/t change from prior Assessment & Plan Assessment: Patient is 61/F with afib, systolic CHF (EF 40%), DM1, chronic schizophrenia who presents with complaint of progressive shortness of breath over the past 2 days. Plan: # dyspnea Likely a result of mild acute decompensated systolic CHF, given CXR findings, elevated BNP. Patient was wheezing, so mild COPD exacerbation could also be contributing, however, patient does not carry this diagnosis. Will given IV lasix diuresis, continue home rate and BP controlling meds. - monitor I/Os - lasix 40 mg IV BID - monitor and replete electrolytes prn - duoneb prn - trend troponins # afib with rvr Patient frequently hospitalized for she Afib with RVR previously due to med noncompliance. Today, patient reports complete compliance with all her meds. May need to uptitrate her lopressor. Cont xarelto # chronic tobacco use Advised of risks of continued tobacco use. Patient declined nicotine patch. # chronic schizophrenia Stable. # dispo: admit to observation # full code
--- NOTE | 2016-07-04 08:18 | DX ---
PA and Lateral Chest Clinical Indications: Shortness of breath in a 61-year-old female; comparison portable chest June 19, 2016. Findings: No focal pulmonary consolidation is identified. Mild peribronchial cuffing is noted.. There is hyperexpansion seen with flattening of the hemidiaphragms noted. The heart is enlarged and pulmon garrick vascularity is mildly plethoric. Pleural surfaces and bony thorax are negative for acute abnormal ity. Impression: Suspect congestive heart failure/fluid overload possibly superimposed upon underlying air ways disease.
[2016-07-04] MEDS ORDERED: predniSONE 20 MG TAB PO ONE (14:56)
--- NOTE | 2016-07-04 14:58 | HOSPPROG ---
Hospitalist Progress Note Assessment/Plan: 61 yo F w schizophrenia, AF, dm and med non compliance admitted w acute on chronic systolic chf and rapid AF AF: restart home BB suspect she is mildly volume overloaded minimize nebs sCHF: continue diuresis change lasix to 40 IV daily after today dm: continue lantus and lispro SS last a1c of 16 indicated uncontrolled dm proph: anticoagulated dispo: pcu, inpt Subjective: cxr: chf (interp by me). ekg: AF (interp by me) Objective: Vital Signs Temp Pulse Resp BP Pulse Ox 37.2 C 132 H 25 H 148/86 H 92 07/04/16 14:36 07/04/16 14:36 07/04/16 14:36 07/04/16 14:36 07/04/16 14:36 Laboratory Results 07/04/16 05:51 07/03/16 07/04/16 07/05/16 05:59 05:59 05:59 Intake Total 250 400 Output Total 2300 Balance 250 -1900 - Physical Exam Constitutional: no apparent distress, appears nourished Eyes: PERRL, anicteric sclera Ears, Nose, Mouth, Throat: moist mucous membranes, hearing normal Cardiovascular: irregularly irregular, tachycardia Respiratory: rhonchi (wheezes), other Gastrointestinal: normoactive bowel sounds, soft, non-tender abdomen Genitourinary: No diaz in urethra Skin: warm, normal color Musculoskeletal: full muscle strength, no muscle tenderness Neurologic: AAOx3 ICD10 Worksheet Patient Problems: Problems Problem Status Diagnosed Atrial fibrillation with RVR Acute CHF (congestive heart failure) Acute Acute exacerbation of congestive heart failure Acute Chest discomfort Acute Chronic Disease Mgmt/Transitional Care Acute Dyspnea Acute Elevated troponin Acute Hyperglycemia Acute Hyperglycemia without ketosis Acute Hypoxemia Acute Pulmonary edema Acute Schizophrenia Acute
[2016-07-04] MEDS: METOPROLOL SUCCINATE XR 25 MG TAB PO SCH (15:15)
[2016-07-04] MEDS: ACETAMINOPHEN 325 MG TAB PO PRN ×2 (15:57→20:52)
[2016-07-04] MEDS: RIVAROXABAN 20 MG TAB PO SCH (17:35)
[2016-07-04 17:59] LABS: POTASSIUM 3.3 mEq/L (3.5-5.2)
[2016-07-04] MEDS ORDERED: POTASSIUM CL 10 MEQ TAB ONE (20:54)
[2016-07-04] MEDS: INSULIN GLARGINE 100 UNITS/ML SYRINGE SC SCH (21:36)
[2016-07-05] MEDS: INSULIN GLARGINE 100 UNITS/ML SYRINGE SC SCH ×2 (03:06→21:47)
[2016-07-05] MEDS: IPRATROPIUM/ALBUTEROL 3 ML DEYVIAL IH SCH ×4 (03:10→21:07)
[2016-07-05 03:26] LABS: MAGNESIUM 1.8 mg/dL (1.6-2.3); POTASSIUM 4.4 mEq/L (3.5-5.2)
[2016-07-05] MEDS ORDERED: MAGNESIUM SULF 1 GM/DEXTROSE 100 ML IV ONE (08:07)
--- NOTE | 2016-07-05 08:38 | HOSPPROG ---
Hospitalist Progress Note Assessment/Plan: #Permanent atrial fibrillation: HR 100-140s -resumed Toprol 25mg, may need uptitration -Xarelto #Decompensated systolic HF -UOP -3.6L -K and Mg okay -cont IV lasix today and transition to PO in morning #Uncontrolled DM2: A1c 16% -cont Glargine and SSI #Schizophrenia: not on meds #COPD exacerbation -limit nebs with tachycardia -no pred with concern of agitation #Acute hypoxemic resp failure: due to COPD + CHF -plan as above #Diet: diabetic #DVT ppx: ambulatory #Disp: warrants inpt admission for monitored diuresis, telemetry Subjective: breathing improved today Objective: Vital Signs Temp Pulse Resp BP Pulse Ox 36.3 C 118 H 22 H 128/88 H 92 07/05/16 03:08 07/05/16 08:00 07/05/16 08:00 07/05/16 08:00 07/05/16 08:00 Laboratory Results 07/05/16 03:00 07/04/16 07/05/16 07/06/16 05:59 05:59 05:59 Intake Total 250 1400 Output Total 5000 Balance 250 -3600 - Physical Exam Constitutional: unkempt Eyes: PERRL Ears, Nose, Mouth, Throat: dry mucous membranes Cardiovascular: irregularly irregular, tachycardia, edema (+1 pedal edema) Respiratory: expiratory wheeze, rhonchi Gastrointestinal: normoactive bowel sounds, soft, non-tender abdomen, no palpable masses Genitourinary: no bladder fullness Skin: warm Musculoskeletal: full muscle strength Neurologic: AAOx3 Psychiatric: flat affect ICD10 Worksheet Patient Problems: Problems Problem Status Diagnosed Atrial fibrillation with RVR Acute CHF (congestive heart failure) Acute Acute exacerbation of congestive heart failure Acute Chest discomfort Acute Chronic Disease Mgmt/Transitional Care Acute Dyspnea Acute Elevated troponin Acute Hyperglycemia Acute Hyperglycemia without ketosis Acute Hypoxemia Acute Pulmonary edema Acute Schizophrenia Acute
[2016-07-05] MEDS: FUROSEMIDE 40 MG/4 ML VIAL IVP SCH (09:01)
[2016-07-05] MEDS: METOPROLOL SUCCINATE XR 25 MG TAB PO SCH (09:01)
[2016-07-05] MEDS: INSULIN LISPRO 100 UNIT/ML SC SCH ×4 (09:01→21:46)
[2016-07-05] MEDS ORDERED: METOPROLOL TARTRATE 25 MG TAB PO ONE (13:52)
[2016-07-05] MEDS ORDERED: BISACODYL 10 MG SUPP PR PRN (14:47)
[2016-07-05] MEDS ORDERED: LACTULOSE 20 GM/30 ML UDCUP PO PRN (14:47)
[2016-07-05] MEDS ORDERED: MAGNESIUM HYDROXIDE 30 ML UDCUP PO PRN (14:47)
[2016-07-05 17:53] LABS: POTASSIUM 4.1 mEq/L (3.5-5.2)
[2016-07-05] MEDS: RIVAROXABAN 20 MG TAB PO SCH (17:55)
[2016-07-05] MEDS: SENNOSIDES/DOCUSATE SODIUM TAB PO SCH (21:50)
[2016-07-06] MEDS: IPRATROPIUM/ALBUTEROL 3 ML DEYVIAL IH SCH ×4 (05:31→20:06)
[2016-07-06 06:31] LABS: ANION GAP 5 mEq/L (8-16); CALCIUM 8.1 mg/dL (8.5-10.4); CARBON DIOXIDE 32 mEq/l (22-31); CHLORIDE 103 mEq/L (97-110); CREATININE 0.5 mg/dL (0.6-1.0); GLOMERULAR FILTRATION RATE > 60; GLUCOSE 81 mg/dL (70-100); MAGNESIUM 1.7 mg/dL (1.6-2.3); POTASSIUM 3.9 mEq/L (3.5-5.2); SODIUM 140 mEq/L (134-144)
[2016-07-06] MEDS ORDERED: POTASSIUM CL 10 MEQ TAB PO ONE (07:56)
[2016-07-06] MEDS ORDERED: MAGNESIUM SULF 1 GM/DEXTROSE 100 ML IV ONE (08:01)
[2016-07-06] MEDS: INSULIN LISPRO 100 UNIT/ML SC SCH ×4 (08:45→21:48)
[2016-07-06] MEDS ORDERED: FUROSEMIDE 40 MG TAB PO SCH (09:00)
[2016-07-06] MEDS ORDERED: POTASSIUM CL 10 MEQ TAB ONE (10:31)
[2016-07-06] MEDS: METOPROLOL SUCCINATE XR 25 MG TAB PO SCH (10:33)
[2016-07-06] MEDS: SENNOSIDES/DOCUSATE SODIUM TAB PO SCH ×2 (10:33→21:49)
--- NOTE | 2016-07-06 13:19 | HOSPPROG ---
Hospitalist Progress Note Assessment/Plan: #Permanent atrial fibrillation: HR 100-140s -resumed Toprol 25mg, add additional dose today -Xarelto #Decompensated systolic HF -K and Mg okay -changed back to home lasix dose today #Uncontrolled DM2: A1c 16% -cont Glargine and SSI #Schizophrenia: not on meds #COPD exacerbation -limit nebs with tachycardia -no pred with concern of agitation #Acute hypoxemic resp failure: due to COPD + CHF: resolved. Cont nebs and diuresis #Diet: diabetic #DVT ppx: ambulatory #Disp: warrants inpt admission for monitored diuresis, telemetry Subjective: breathing improved Objective: Vital Signs Temp Pulse Resp BP Pulse Ox 36.9 C 117 H 16 135/77 H 98 07/06/16 13:11 07/06/16 11:41 07/06/16 11:41 07/06/16 11:41 07/06/16 11:41 Laboratory Results 07/06/16 05:40 07/05/16 07/06/16 07/07/16 05:59 05:59 05:59 Intake Total 1210 Output Total 1650 Balance -440 - Physical Exam Constitutional: no apparent distress, unkempt Ears, Nose, Mouth, Throat: moist mucous membranes Cardiovascular: irregularly irregular, tachycardia Respiratory: reduced air movement, expiratory wheeze Gastrointestinal: normoactive bowel sounds, soft, non-tender abdomen Genitourinary: no bladder fullness Skin: warm, normal color Musculoskeletal: full muscle strength Neurologic: AAOx3 ICD10 Worksheet Patient Problems: Problems Problem Status Diagnosed Atrial fibrillation with RVR Acute CHF (congestive heart failure) Acute Acute exacerbation of congestive heart failure Acute Chest discomfort Acute Chronic Disease Mgmt/Transitional Care Acute Dyspnea Acute Elevated troponin Acute Hyperglycemia Acute Hyperglycemia without ketosis Acute Hypoxemia Acute Pulmonary edema Acute Schizophrenia Acute
[2016-07-06] MEDS: POLYETHYLENE GLYCOL 3350 17 GM PKT PO PRN (13:47)
[2016-07-06] MEDS: BENZONATATE 100 MG CAP PO PRN ×3 (14:20→21:49)
[2016-07-06] MEDS: RIVAROXABAN 20 MG TAB PO SCH (18:44)
[2016-07-06 19:11] LABS: POTASSIUM 4.6 mEq/L (3.5-5.2)
[2016-07-06] MEDS ORDERED: METOPROLOL TARTRATE 25 MG TAB PO ONE (21:00)
[2016-07-06] MEDS: INSULIN GLARGINE 100 UNITS/ML SYRINGE SC SCH (21:48)
[2016-07-07 04:25] VITALS: TEMP 97.7
[2016-07-07] MEDS: IPRATROPIUM/ALBUTEROL 3 ML DEYVIAL IH SCH ×3 (05:59→16:10)
[2016-07-07 06:33] LABS: ANION GAP 5 mEq/L (8-16); CALCIUM 8.6 mg/dL (8.5-10.4); CARBON DIOXIDE 30 mEq/l (22-31); CHLORIDE 105 mEq/L (97-110); CREATININE 0.5 mg/dL (0.6-1.0); GLOMERULAR FILTRATION RATE > 60; GLUCOSE 71 mg/dL (70-100); POTASSIUM 4.1 mEq/L (3.5-5.2); SODIUM 140 mEq/L (134-144)
[2016-07-07] MEDS ORDERED: ALBUTEROL 60 PUFFS/8 GM MDI IH PRN ×2 (08:52→10:45)
[2016-07-07] MEDS ORDERED: METOPROLOL SUCCINATE XR 50 MG TAB PO SCH (09:00)
[2016-07-07] MEDS ORDERED: FUROSEMIDE 40 MG TAB PO SCH (09:00)
--- NOTE | 2016-07-07 09:07 | HOSPPROG ---
[id number], add additional dose today -Xarelto #Decompensated systolic HF -K and Mg okay -changed back to home lasix dose today #Uncontrolled DM2: A1c 16% -cont Glargine and SSI #Schizophrenia: not on meds #COPD exacerbation -limit nebs with tachycardia -no pred with concern of agitation #Acute hypoxemic resp failure: due to COPD + CHF: resolved. Cont nebs and diuresis #Diet: diabetic #DVT ppx: ambulatory #Disp: patient at risk for readmission given underlying mental illness and medication/medicine noncompliance. Spoke with Kiah with [facility]. Pt's care has been transitioned to P/primary clinic with Dr. Denney, who I am trying to contact. Pt would benefit from Home Health RN, but has declined in past. [facility] RN can make a home visit DC today Subjective: no acute events Objective: Vital Signs Temp Pulse Resp BP Pulse Ox 36.5 C 91 14 140/98 H 98 07/07/16 07:59 07/07/16 07:59 07/07/16 07:59 07/07/16 07:59 07/07/16 07:59 Laboratory Results 07/07/16 05:30 07/06/16 07/07/16 07/08/16 05:59 05:59 05:59 Intake Total 1210 400 Output Total 1650 Balance -440 400 - Physical Exam Constitutional: no apparent distress Eyes: PERRL Ears, Nose, Mouth, Throat: dry mucous membranes Cardiovascular: irregularly irregular Respiratory: reduced air movement Gastrointestinal: normoactive bowel sounds Musculoskeletal: full muscle strength Neurologic: AAOx3 Psychiatric: interacting appropriately ICD10 Worksheet Patient Problems: Problems Problem Status Diagnosed Atrial fibrillation with RVR Acute CHF (congestive heart failure) Acute Acute exacerbation of congestive heart failure Acute Chest discomfort Acute Chronic Disease Mgmt/Transitional Care Acute Dyspnea Acute Elevated troponin Acute Hyperglycemia Acute Hyperglycemia without ketosis Acute Hypoxemia Acute Pulmonary edema Acute Schizophrenia Acute
[2016-07-07] MEDS: SENNOSIDES/DOCUSATE SODIUM TAB PO SCH (09:48)
[2016-07-07] MEDS: POLYETHYLENE GLYCOL 3350 17 GM PKT PO PRN (09:48)
[2016-07-07] MEDS: INSULIN LISPRO 100 UNIT/ML SC SCH ×2 (09:50→11:49)
[2016-07-07] MEDS ORDERED: CEPACOL LOZENGE PO PRN (10:36)
[2016-07-07 12:00] VITALS: BP 137/86; PULSE 101; RESP 19
[2016-07-07 12:02] VITALS: O2SAT 84
--- NOTE | 2016-07-07 13:32 | GDS ---
[f rep st] DISCHARGE SUMMARY DISCHARGE DIAGNOSES: 1. Permanent atrial fibrillation with RVR 2. Decompensated systolic heart failure. 3. Uncontrolled diabetes type 2 with A1c 16%. 4. Schizophrenia. 5. Chronic obstructive pulmonary disease exacerbation. 6. Acute hypoxic respiratory failure. 7. Medication noncompliance. HISTORY OF PRESENT ILLNESS: The patient is a 61-year-old female with history of schizophrenia, atrial fibrillation and systolic heart failure, who presented with shortness of breath. She was recently admitted for chest pain and atrial fibrillation with RVR due to medication noncompliance. She was discharged 2 weeks ago. Since that time, she says she is compliant with her medications and goes daily to an outpatient clinic for insulin injections. Despite compliance, she has experienced shortness of breath, orthopnea and cough. She denies any associated fever, sore throat, chest pain or palpitations. On arrival to the emergency room, she is tachycardic and in atrial fibrillation with RVR to 140. HOSPITAL COURSE: 1. Atrial fibrillation with RVR: due to medication noncompliance. Resumed on her home metoprolol 25mg, but remained tachycardic, so increased Toprol 50mg with improvement. Continue Xarelto. 2. Acutely decompensated systolic heart failure: Patient was mildly volume overloaded. She was diuresed with IV Lasix. I have resumed her home dose of 40 p.o. daily. 3. Uncontrolled diabetes, A1c 16. The patient goes to our clinic daily to receive insulin as she says she will not do it on her own. Resume home dose. 4. Acute hypoxic respiratory failure: This is multifactorial given significant smoking history and likely COPD. No evidence of pneumonia. Prescribed Proair. She dropped to 83% with ambulation, so be sent home with oxygen. 5. Schizophrenia. She is currently being cared for by P. 6. Healthcare maintenance: The patient is at high risk for readmission given barriers with medication noncompliance and schizophrenia. I have spoken with Kiah with transitional care, as well as social work, to provide a safe discharge plan. The patient is not eligible for home health care as she is not homebound. [facility] will send out a home nurse this week. Patient is to follow up with Dr. Pickens at [facility]. I tried contacting the physician for full recommendations; however, she was not in. I will fax over a discharge summary. 7. Cough, suspect URI: No evidence of pneumonia. P.r.n. Amaya Chavez. 8. COPD exacerbation: chronic cough for months, nonproductive. Improved with nebs. 9. Tobacco abuse: counseled on cessation. DISPOSITION: Patient is stable for discharge. DISCHARGE MEDICATIONS: New medications: 1. Toprol 50 mg daily. 2. Albuterol inhaler p.r.n. 3. Lasix 40 mg daily. FOLLOWUP: 1. Dr. Pickens at [facility] on July 18 at 10:05 a.m. 2. Kiah with [facility] will call the patient on Sunday. Time spent on discharge: 75 min in which >50% spent coordinating follow up and counseling patient on medications. /[id number]/MODL MTDD
== END 2016-07-07 16:41 | disposition home or self-care (01) | DRG 291 ==
LOC: F2N 05:06 → OBSVTOIN 07-05 08:35 → F2W 07-06 13:06
PROVIDERS: ADMIT Internal Medicine; ATTEND Internal Medicine
DX: I50.23 Acute on chronic systolic (congestive) heart failure (principal); J96.01 Acute respiratory failure with hypoxia; J44.1 Chronic obstructive pulmonary disease with (acute) exacerbation; I48.2 Chronic atrial fibrillation; E11.9 Type 2 diabetes mellitus without complications; F20.9 Schizophrenia, unspecified; F17.210 Nicotine dependence, cigarettes, uncomplicated; Z91.14 Patient's other noncompliance with medication regimen
CPT/HCPCS: 92526-GN; 92610-GN; G0378; G8996-GN-CI; G8997-GN-CH; J1815; J3475

== ENCOUNTER 2016-07-15 05:15 | Emergency (ER) | payer OTHER ==
[2016-07-15 05:23] VITALS: RESP 16; TEMP 97.9
[2016-07-15] MEDS ORDERED: IPRATROPIUM/ALBUTEROL 3 ML DEYVIAL IH ONE (05:37)
[2016-07-15] MEDS ORDERED: FUROSEMIDE 40 MG/4 ML VIAL IVP ONE (05:37)
[2016-07-15 06:14] LABS: % IMMATURE GRANULYOCYTES 0.5 % (0.0-1.1); ABSOLUTE IMMATURE GRANULOCYTES 0.05 10^3/uL (0.00-0.10); ADD DIFF? NO; ADD MORPH? NO; ADD SCAN? NO; ATYPICAL LYMPHOCYTE FLAG 10 (0-99); FRAGMENT RBC FLAG 0 (0-99); HEMOGLOBIN 11.4 g/dL (12.6-16.3); LEFT SHIFT FLG 0 (0-99); LIPEMIA HEMOLYSIS FLAG 80 (0-99); MEAN CELL HEMOGLOBIN 27.6 pg (27.9-34.1); MEAN CELL HEMOGLOBIN CONCENTR. 30.8 g/dL (32.4-36.7); MEAN CELL VOLUME 89.6 fL (81.5-99.8); MEAN PLATELET VOLUME 10.3 fL (8.7-11.7); PLATELET CLUMPS FLAG 10 (0-99); PLATELET COUNT 282 10^3/uL (150-400); RED BLOOD CELL COUNT 4.13 10^6/uL (4.18-5.33); RED CELL DISTRIBUTION WIDTH 14.7 % (11.5-15.2)
[2016-07-15 06:15] LABS: ALANINE AMINOTRANSFERASE 68 IU/L (9-52); ALKALINE PHOSPHATASE 87 IU/L (38-126); ANION GAP 9 mEq/L (8-16); ASPARTATE AMINOTRANSFERASE 44 IU/L (14-46); BILIRUBIN,TOTAL 0.4 mg/dL (0.1-1.4); CALCIUM 8.7 mg/dL (8.5-10.4); CARBON DIOXIDE 29 mEq/l (22-31); CHLORIDE 105 mEq/L (97-110); CREATININE 0.6 mg/dL (0.6-1.0); GLOMERULAR FILTRATION RATE > 60; GLUCOSE 71 mg/dL (70-100); POTASSIUM 3.6 mEq/L (3.5-5.2); SODIUM 143 mEq/L (134-144)
--- NOTE | 2016-07-15 06:50 | EDPHY ---
H & P Stated Complaint: SOB Time Seen by Provider: 07/15/16 05:30 HPI/ROS: HPI The patient presents with shortness of breath and wheezing which she notices when she lies flat and tries to sleep. She has been having difficulty sleeping like this for the last several months she says. She says she has a mild cough. She can walk 1 block before she feels short of breath. She does not have any chest pain, fever, vomiting. She says she has been compliant with her medications. Of note, she was admitted to the hospital from July 04 to July 07 she was found to be in atrial fibrillation with RVR and this was thought to be related to medication noncompliance.. REVIEW OF SYSTEMS Constitutional: No fever, no chills. Eyes: No discharge. ENT: No sore throat. Cardiovascular: No chest pain, no palpitations. Respiratory: No cough, + shortness of breath. Gastrointestinal: No abdominal pain, no vomiting. Genitourinary: No hematuria. Musculoskeletal: No back pain. Skin: No rashes. Neurological: No headache. PMHx: COPD, CHF, atrial fibrillation with RVR Soc Hx: Lives at home, history of smoking PHYSICAL General Appearance: Alert, no distress Eyes: Pupils equal and round no pallor or injection ENT, Mouth: Mucous membranes moist Respiratory: There are no retractions, lungs are clear to auscultation Cardiovascular: Regular rate and rhythm Gastrointestinal: Abdomen is soft and non-tender, no masses, bowel sounds normal Neurological: A&O, moves all extremities Skin: Warm and dry, no rashes Musculoskeletal: Neck is supple non tender Extremities: symmetrical, full range of motion Psychiatric: Patient is oriented X 3, there is no agitation Source: Patient Exam Limitations: No limitations - Personal History Current Tetanus Diphtheria and Acellular Pertussis (TDAP): Yes Tetanus Vaccine Date: within last 5 years - Medical/Surgical History Hx Asthma: No Hx Chronic Respiratory Disease: Yes Hx Diabetes: Yes Hx Cardiac Disease: Yes Hx Renal Disease: No Hx Cirrhosis: No Hx Alcoholism: No Hx HIV/AIDS: No Hx Splenectomy or Spleen Trauma: No Other PMH: COPD, skizophrenia, diabetes, biploar, htn, Afib, DM2,CVA, no deficeits, - Social History Smoking Status: Current every day smoker Constitutional: Initial Vital Signs Temperature (C) 36.6 C 07/15/16 05:22 Heart Rate 81 07/15/16 05:22 Respiratory Rate 16 07/15/16 05:22 Blood Pressure 120/78 07/15/16 05:22 O2 Sat (%) 94 07/15/16 05:22 O2 Delivery Mode Room Air Allergies/Adverse Reactions: morphine Allergy (Unknown, Verified 07/15/16 05:27) fluoxetine HCl [From Prozac] Allergy (Verified 07/15/16 05:27) risperidone [From Risperdal] Allergy (Verified 07/15/16 05:27) Sulfa (Sulfonamide Antibiotics) Allergy (Verified 07/15/16 05:27) Home Medications: Medication Instructions Recorded Furosemide [Lasix 40 MG (*)] 40 mg PO DAILY PRN #30 tab 06/20/16 Insulin Glargine [Lantus 100 45 units SC HS 07/04/16 UNITS/ML (*)] Rivaroxaban [Xarelto] 20 mg PO DAILY18 07/04/16 Albuterol [Proventil Inhaler HFA 1 - 2 puffs IH Q4HRS PRN #1 mdi 07/07/16 (*)] Metoprolol Succinate Xr [Toprol Xl 50 mg PO DAILY #30 tab 07/07/16 50 mg (*)] Medical Decision Making - Diagnostics Imaging: Chest x-ray two views shows cephalization with some pulmonary vascular congestion, reactive airways, interpreted by me, radiology interpretation pending. ED Course/Re-evaluation: In the emergency room, basic labs were checked and were unremarkable. Her BNP is elevated, though similar to prior elevations. Her chest x-ray looks unchanged from her previous. She was not hypoxic or tachycardic here. She received a neb with improvement in her symptoms as well as Lasix IV with some diuresis. I think she is suitable for discharge home, she may have a mild CHF exacerbation. I have instructed her to double her Lasix dose to 80 mg for the next 2 days and then follow up with her primary care doctor on Sunday. She is to return if she is worse in any way. Differential Diagnosis: This is a 61-year-old female with multiple medical problems including CHF, atrial fibrillation with RVR, COPD who presents from home with several months of orthopnea associated with wheezing. This has caused her to have insomnia. She has been taking her medications she reports. On exam, she is not tachycardic, she is not hypoxic, lungs actually sound quite clear. Differential diagnosis includes pulmonary edema, COPD with exacerbation, pneumonia. - Data Points Laboratory Results: Laboratory Results 07/15/16 05:47 07/15/16 05:47 07/15/16 05:47 WBC 9.12 10^3/uL (3.80-9.50) RBC 4.13 L 10^6/uL (4.18-5.33) Hgb 11.4 L g/dL (12.6-16.3) Hct 37.0 L % (38.0-47.0) MCV 89.6 fL (81.5-99.8) MCH 27.6 L pg (27.9-34.1) MCHC 30.8 L g/dL (32.4-36.7) RDW 14.7 % (11.5-15.2) Plt Count 282 10^3/uL (150-400) MPV 10.3 fL (8.7-11.7) Neut % (Auto) 71.9 % (39.3-74.2) Lymph % (Auto) 17.9 % (15.0-45.0) [place] % (Auto) 6.0 % (4.5-13.0) Eos % (Auto) 3.0 % (0.6-7.6) Baso % (Auto) 0.7 % (0.3-1.7) Nucleat RBC Rel Count 0.0 % (0.0-0.2) Absolute Neuts (auto) 6.56 H 10^3/uL (1.70-6.50) Absolute Lymphs (auto) 1.63 10^3/uL (1.00-3.00) Absolute Monos (auto) 0.55 10^3/uL (0.30-0.80) Absolute Eos (auto) 0.27 10^3/uL (0.03-0.40) Absolute Basos (auto) 0.06 10^3/uL (0.02-0.10) Absolute Nucleated RBC 0.00 10^3/uL (0-0.01) Immature Gran % 0.5 % (0.0-1.1) Immature Gran # 0.05 10^3/uL (0.00-0.10) Sodium 143 mEq/L (134-144) Potassium 3.6 mEq/L (3.5-5.2) Chloride 105 mEq/L (97-110) Carbon Dioxide 29 mEq/l (22-31) Anion Gap 9 mEq/L (8-16) BUN 17 mg/dL (7-23) Creatinine 0.6 mg/dL (0.6-1.0) Estimated GFR > 60 Glucose 71 mg/dL (70-100) Calcium 8.7 mg/dL (8.5-10.4) Total Bilirubin 0.4 mg/dL (0.1-1.4) AST 44 IU/L (14-46) ALT 68 H IU/L (9-52) Alkaline Phosphatase 87 IU/L (38-126) NT-Pro-B Natriuret Pep 1300 H pg/mL (0-125) Total Protein 6.0 L g/dL (6.3-8.2) Albumin 3.0 L g/dL (3.5-5.0) Medications Given: Discontinued Medications Albuterol/Ipratropium (Duoneb) 3 ml IH EDNOW ONE Stop: 07/15/16 05:38 Last Admin: 07/15/16 06:02 Dose: 3 ml Furosemide (Lasix Injection) 40 mg IVP EDNOW ONE Stop: 07/15/16 05:38 Last Admin: 07/15/16 05:50 Dose: 40 mg Departure - Departure Disposition: Home, Routine, Self-Care Clinical Impression: Chronic obstructive pulmonary disease with acute exacerbation, CHF (congestive heart failure), Shortness of breath Condition: Good Instructions: Heart Failure (ED) Additional Instructions: Please increase your Lasix dose to 80 mg daily for the next 2 days. Then you should follow up with your doctor. You should return to the emergency room if your worse in any way. Referrals: Hellen Clark PA [Primary Care Provider] - As per Instructions
[2016-07-15 07:01] VITALS: BP 146/89; PULSE 100; O2SAT 93
--- NOTE | 2016-07-15 08:04 | DX ---
Chest, PA and Lateral History: Dyspnea Comparison: 06/16/16 Findings: There is CHF with interstitial pulmonary edema. There is no pleural effusion formation Ther e is some patchy consolidation posteriorly, possibly at the left base. Impression: 1. Early CHF 2. Possible underlying left lower lobe, patchy pneumonia.
== END 2016-07-15 07:01 | disposition home or self-care (01) ==
DX: J44.1 Chronic obstructive pulmonary disease with (acute) exacerbation (principal); I50.9 Heart failure, unspecified; F17.200 Nicotine dependence, unspecified, uncomplicated; E11.9 Type 2 diabetes mellitus without complications; I10 Essential (primary) hypertension; Z86.73 Personal history of transient ischemic attack (TIA), and cerebral infarction without residual deficits; Z79.4 Long term (current) use of insulin
CPT/HCPCS: 96374

== ENCOUNTER 2016-09-09 07:53 | Emergency (ER) | payer OTHER ==
--- NOTE | 2016-09-09 07:56 | EDPHY ---
H & P Time Seen by Provider: 09/09/16 07:56 - Personal History Tetanus Vaccine Date: within last 5 years - Medical/Surgical History Hx Asthma: No Hx Chronic Respiratory Disease: Yes Hx Diabetes: Yes Hx Cardiac Disease: Yes Hx Renal Disease: No Hx Cirrhosis: No Hx Alcoholism: No Hx HIV/AIDS: No Hx Splenectomy or Spleen Trauma: No Other PMH: COPD, schizophrenia, diabetes, biploar, htn, Afib, DM2,CVA - Social History Smoking Status: Current every day smoker Constitutional: Initial Vital Signs Temperature (C) 36.8 C 09/09/16 08:05 Heart Rate 81 09/09/16 08:05 Respiratory Rate 18 09/09/16 08:05 Blood Pressure 174/103 H 09/09/16 08:05 O2 Sat (%) 95 09/09/16 08:05 O2 Delivery Mode Room Air Allergies/Adverse Reactions: morphine Allergy (Unknown, Verified 09/09/16 08:04) fluoxetine HCl [From Prozac] Allergy (Verified 09/09/16 08:04) risperidone [From Risperdal] Allergy (Verified 09/09/16 08:04) Sulfa (Sulfonamide Antibiotics) Allergy (Verified 09/09/16 08:04) Home Medications: Medication Instructions Recorded Furosemide [Lasix 40 MG (*)] 40 mg PO DAILY PRN #30 tab 06/20/16 Insulin Glargine [Lantus 100 45 units SC HS 07/04/16 UNITS/ML (*)] Rivaroxaban [Xarelto] 20 mg PO DAILY18 07/04/16 Albuterol [Proventil Inhaler HFA 1 - 2 puffs IH Q4HRS PRN #1 mdi 07/07/16 (*)] Metoprolol Succinate Xr [Toprol Xl 50 mg PO DAILY #30 tab 07/07/16 50 mg (*)] Metformin HCl [Metformin 1000 mg] 1,000 mg 09/09/16 Ventolin Hfa Inhaler 09/09/16 Medical Decision Making ED Course/Re-evaluation: CHIEF COMPLAINT: Psychiatric evaluation HISTORY OF PRESENT ILLNESS: The patient is a 61-year-old female with a history of depression, schizophrenia, and bipolar disorder who presents for depression and SI. She says "I can't cope anymore" but is too scared to commit suicide. She admits auditory and visual hallucinations. She is not on medications for her depression. She denies HI. She has no medical complaints at this time. REVIEW OF SYSTEMS: A 10 point review of systems was performed and is negative with the exception of the elements mentioned in the history of present illness. PHYSICAL EXAM: General Appearance: Alert, well hydrated, appropriate, and non-toxic appearing. Head: Atraumatic without scalp tenderness or obvious injury Eyes: Pupils equal, round, reactive to light and accommodation, EOMI, no trauma , no injection. Ears: Clear bilaterally, no perforation, normal landmarks Nose: Atraumatic, no rhinorrhea, clear. Throat: There is no erythema or exudates, no lesions, normal tonsils, mucus membranes moist. Neck: Supple, 2+ carotid upstroke, nontender, no lymphadenopathy. Respiratory: No retractions, no distress, no wheezes, and no accessory muscle use. Lungs are clear to auscultation bilaterally. Cardiovascular: Regular rate and rhythm, no murmurs, rubs, or gallops. Bilateral carotid, radial, dorsalis pedis, and posterior tibial pulses intact. Good capillary refill all extremities. Gastrointestinal: Abdomen is soft, nontender, non-distended, no masses, no rebound, no guarding, no peritoneal signs. Musculoskeletal: Normal active ROM of all extremities, atraumatic. Neurological: Alert, appropriate, and interactive. The patient has normal DTRs and non-focal cranial nerves, motor, sensory, and cerebellar exam. Skin: No rashes, good turgor, no nodules on palpation. Past medical history:COPD, schizophrenia, diabetes, bipolar, hypertension, atrial fibrillation, DM2,CVA Past surgical history:N/A. Family history:N/A. Social history:Lives in [place]. DIFFERENTIAL DIAGNOSIS: The differential diagnosis for the patient's depression included but was not limited to functional and major depression, situational depression, medication side effect, drugs, and alcohol abuse. MEDICAL DECISION MAKING: Patient is in no acute distress and is hemodynamically stable. We are awaiting psychiatric team's evaluation. Patient has known history of psychiatric disorders and is here for evaluation. 1255: Consulted with [facility] after their evaluation. They believe the patient is safe for discharge home with her sister. - Data Points Laboratory Results: Laboratory Results 09/09/16 08:15 09/09/16 08:15 09/09/16 09/09/1609/09/17 08:15 08:15 08:00 WBC 9.59 10^3/uL H 10^3/uL (3.80-9.50) RBC 4.71 10^6/uL 10^6/uL (4.18-5.33) Hgb 13.2 g/dL g/dL (12.6-16.3) Hct 41.9 % % (38.0-47.0) MCV 89.0 fL fL (81.5-99.8) MCH 28.0 pg pg (27.9-34.1) MCHC 31.5 g/dL L g/dL (32.4-36.7) RDW 18.3 % H % (11.5-15.2) Plt Count 242 10^3/uL 10^3/uL (150-400) MPV 10.0 fL fL (8.7-11.7) Neut % (Auto) 79.7 % H % (39.3-74.2) Lymph % (Auto) 14.2 % L % (15.0-45.0) [place] % (Auto) 3.3 % L % (4.5-13.0) Eos % (Auto) 1.9 % % (0.6-7.6) Baso % (Auto) 0.5 % % (0.3-1.7) Nucleat RBC Rel Count 0.0 % % (0.0-0.2) Absolute Neuts (auto) 7.64 10^3/uL H 10^3/uL (1.70-6.50) Absolute Lymphs (auto) 1.36 10^3/uL 10^3/uL (1.00-3.00) Absolute Monos (auto) 0.32 10^3/uL 10^3/uL (0.30-0.80) Absolute Eos (auto) 0.18 10^3/uL 10^3/uL (0.03-0.40) Absolute Basos (auto) 0.05 10^3/uL 10^3/uL (0.02-0.10) Absolute Nucleated RBC 0.00 10^3/uL 10^3/uL (0-0.01) Immature Gran % 0.4 % % (0.0-1.1) Immature Gran # 0.04 10^3/uL 10^3/uL (0.00-0.10) Sodium 145 mEq/L H mEq/L (134-144) Potassium 3.6 mEq/L mEq/L (3.5-5.2) Chloride 108 mEq/L mEq/L (97-110) Carbon Dioxide 28 mEq/l mEq/l (22-31) Anion Gap 9 mEq/L mEq/L (8-16) BUN 20 mg/dL mg/dL (7-23) Creatinine 0.7 mg/dL mg/dL (0.6-1.0) Estimated GFR > 60 Glucose 70 mg/dL mg/dL (70-100) Calcium 9.3 mg/dL mg/dL (8.5-10.4) Salicylates < 1.0 mg/dL L mg/dL (2.0-20.0) Urine Opiates Screen NEGATIVE (NEGATIVE) Acetaminophen < 10 mcg/mL L mcg/mL (10.0-30.0) Urine Barbiturates NEGATIVE (NEGATIVE) Ur Phencyclidine Scrn NEGATIVE (NEGATIVE) Ur Amphetamine Screen NEGATIVE (NEGATIVE) U Benzodiazepines Scrn NEGATIVE (NEGATIVE) Urine Cocaine Screen NEGATIVE (NEGATIVE) U Marijuana (THC) Screen NEGATIVE (NEGATIVE) Ethyl Alcohol < 10 mg/dL mg/dL (0-10) Departure - Departure Disposition: Home, Routine, Self-Care Clinical Impression: Depression Qualifiers: Depression Type: unspecified Qualified Code(s): F32.9 - Major depressive disorder, single episode, unspecified Condition: Good Instructions: Depression (ED) Additional Instructions: Follow up with your primary care provider. Return for any serious worsening of condition. Referrals: Hellen Clark PA [Primary Care Provider] - As per Instructions Report Scribed for: David Lyn Report Scribed by: Augustin Hernandez Date of Report: 09/09/16 Time of Report: 08:01
[2016-09-09 08:10] VITALS: PULSE 81; TEMP 98.2
[2016-09-09 08:27] LABS: % IMMATURE GRANULYOCYTES 0.4 % (0.0-1.1); ABSOLUTE IMMATURE GRANULOCYTES 0.04 10^3/uL (0.00-0.10); ADD DIFF? NO; ADD MORPH? NO; ADD SCAN? NO; ATYPICAL LYMPHOCYTE FLAG 10 (0-99); FRAGMENT RBC FLAG 20 (0-99); HEMATOCRIT 41.9 % (38.0-47.0); HEMOGLOBIN 13.2 g/dL (12.6-16.3); LEFT SHIFT FLG 0 (0-99); LIPEMIA HEMOLYSIS FLAG 80 (0-99); MEAN CELL HEMOGLOBIN CONCENTR. 31.5 g/dL (32.4-36.7); PLATELET CLUMPS FLAG 0 (0-99); PLATELET COUNT 242 10^3/uL (150-400); RED BLOOD CELL COUNT 4.71 10^6/uL (4.18-5.33); RED CELL DISTRIBUTION WIDTH 18.3 % (11.5-15.2)
[2016-09-09 08:41] LABS: ANION GAP 9 mEq/L (8-16); CALCIUM 9.3 mg/dL (8.5-10.4); CARBON DIOXIDE 28 mEq/l (22-31); CHLORIDE 108 mEq/L (97-110); CREATININE 0.7 mg/dL (0.6-1.0); ETHANOL SERUM < 10 mg/dL (0-10); GLOMERULAR FILTRATION RATE > 60; GLUCOSE 70 mg/dL (70-100); POTASSIUM 3.6 mEq/L (3.5-5.2); SALICYLATE < 1.0 mg/dL (2.0-20.0); SODIUM 145 mEq/L (134-144)
[2016-09-09 13:21] VITALS: BP 167/98; RESP 16; O2SAT 94
== END 2016-09-09 13:18 | disposition home or self-care (01) ==
DX: F32.9 Major depressive disorder, single episode, unspecified (principal); J44.9 Chronic obstructive pulmonary disease, unspecified; E11.9 Type 2 diabetes mellitus without complications; I10 Essential (primary) hypertension; F17.200 Nicotine dependence, unspecified, uncomplicated; Z79.01 Long term (current) use of anticoagulants; Z79.4 Long term (current) use of insulin; Z86.73 Personal history of transient ischemic attack (TIA), and cerebral infarction without residual deficits; Z79.84 Long term (current) use of oral hypoglycemic drugs
CPT/HCPCS: 80305; G0480

== ENCOUNTER → 2016-12-26 | Outpatient (CLI) | payer OTHER | LOC: BMCIMAGING 11:42 | PROVIDERS: ATTEND Family Medicine | DX: Z12.31 Encounter for screening mammogram for malignant neoplasm of breast (principal) | CPT/HCPCS: G0202 ==

== ENCOUNTER → 2017-01-05 | Outpatient (CLI) | payer OTHER | LOC: BMCIMAGING 10:23 | PROVIDERS: ATTEND Family Medicine | DX: R92.8 Other abnormal and inconclusive findings on diagnostic imaging of breast (principal) | CPT/HCPCS: G0206 ==

== ENCOUNTER 2017-08-14 17:26 | Inpatient (IN) | payer OTHER ==
[2017-08-14] MEDS ORDERED: ETOMIDATE 40 MG/20 ML INJ IVP ONE (17:33)
[2017-08-14] MEDS ORDERED: SUCCINYLCHOLINE CHLORIDE 200 MG/10 ML SYR IVP ONE ×2 (17:33→19:48)
[2017-08-14] MEDS ORDERED: PROPOFOL/EMULSION 1,000 MG/100 ML BOTTLE IV ONE (17:35)
[2017-08-14] MEDS ORDERED: FUROSEMIDE 40 MG/4 ML VIAL IVP ONE (17:37)
[2017-08-14] MEDS ORDERED: NITROGLYCERIN/D5W 50 MG/250 ML BOTTLE IV ONE (17:38)
[2017-08-14] MEDS: PROPOFOL/EMULSION 100 ML IV SCH ×2 (17:42→22:13)
--- NOTE | 2017-08-14 17:43 | CPEKG ---
Heart Rate: 155 RR Interval: 387 P-R Interval: 87 QRSD Interval: 96 QT Interval: 288 QTC Interval: 463 P Villanova: 0 QRS Villanova: 84 T Wave Villanova: -55 EKG Severity - ABNORMAL ECG - EKG Impression: ATRIAL FIBRILLATION WITH RAPID V-RATE EKG Impression: BORDERLINE RIGHT AXIS DEVIATION Electronically Signed By: Roddy Chase 14-Aug-2017 18:50:50
--- NOTE | 2017-08-14 17:54 | EDPHY ---
H & P Time Seen by Provider: 08/14/17 17:50 HPI/ROS: CHIEF COMPLAINT: Respiratory failure HISTORY OF PRESENT ILLNESS: The patient presents to the ED with respiratory failure emergently by paramedics. The patient was nonverbal unable to provide much history. The patient was noted to have rales and significant hypoxemia by EMS. She was started on CPAP. She arrives to the emergency department obtunded , tachypneic and unable to provide additional history. She does have documentation which states the patient has a history of diabetes, heart failure and atrial fibrillation. The patient appears to be followed at [facility]. She is chronically anticoagulated with Xarelto according to her most recent documentation. Additional history is obtained from the patient's family. She reportedly has had a one-week history of fever. She went to urgent care reportedly was diagnosed with strep throat started antibiotics yesterday. She seemed to be improving today. She had a normal conversation with family members earlier today. REVIEW OF SYSTEMS: A comprehensive 10 point review of systems is unobtainable secondary to altered mental status and respiratory distress Source: EMS Exam Limitations: Clinical condition - Personal History Tetanus Vaccine Date: within last 5 years - Medical/Surgical History Hx Asthma: No Hx Chronic Respiratory Disease: Yes Hx Diabetes: Yes Hx Cardiac Disease: Yes Hx Renal Disease: No Hx Cirrhosis: No Hx Alcoholism: No Hx HIV/AIDS: No Hx Splenectomy or Spleen Trauma: No Other PMH: COPD, schizophrenia, diabetes, biploar, htn, Afib, DM2,CVA - Social History Smoking Status: Current every day smoker - Physical Exam Exam: General Appearance: Obese female, markedly tachypneic, obtunded Eyes: Pupils equal and round no pallor or injection ENT, Mouth: Mucous membranes moist Respiratory: Rales all lung wells Cardiovascular: Tachycardic irregular Gastrointestinal: Abdomen is soft and nontender, no masses, bowel sounds normal Neurological: Moves all 4 extremities grossly, unable to assess cranial nerves Skin: Warm and dry, no rashes Musculoskeletal: Neck is supple nontender Extremities: Lower extremity edema present Constitutional: Initial Vital Signs Temperature (C) 38.8 C H 08/14/17 17:26 Heart Rate 127 H 08/14/17 17:26 Respiratory Rate 14 08/14/17 17:26 Blood Pressure 149/94 H 08/14/17 17:26 O2 Sat (%) 97 08/14/17 17:26 O2 Delivery Mode Ventilator O2 (L/minute) 100 Allergies/Adverse Reactions: morphine Allergy (Unknown, Verified 08/14/17 17:46) risperidone [From Risperdal] Allergy (Verified 08/14/17 17:46) Sulfa (Sulfonamide Antibiotics) Allergy (Verified 08/14/17 17:46) Home Medications: Medication Instructions Recorded Albuterol [Proventil Inhaler HFA 1 - 2 puffs IH Q4H PRN 08/14/17 (*)] Alendronate Sodium [Fosamax 70 MG 70 mg PO MO@0700 08/14/17 (*)] Aspirin EC [Aspirin EC 81 mg (*)] 81 mg PO DAILY 08/14/17 Atorvastatin Calcium [Lipitor 20 20 mg PO DAILY 08/14/17 mg (*)] Azithromycin [Zithromax] 250 mg PO DAILY 08/14/17 FLUoxetine [Prozac 10 MG (*)] 10 mg PO DAILY 08/14/17 Insulin Detemir [Levemir Flextouch] 0 unit SQ DAILY 08/14/17 Lisinopril [Zestril 40 mg (*)] 40 mg PO DAILY 08/14/17 Metoprolol Succinate Xr [Toprol Xl 100 mg PO DAILY 08/14/17 100 mg (*)] Rivaroxaban [Xarelto] 20 mg PO DAILY 08/14/17 lamoTRIgine [LamICTAL] 25 mg PO BID 08/14/17 risperiDONE [Risperdal] 3 mg PO DAILY 08/14/17 Medical Decision Making - Diagnostics EKG Interpretation: EKG: Complete interpretation has been separately recorded in the [facility] archive. Summary impression: Atrial fibrillation with rapid ventricular response, rate 155 Imaging Results: Imaging Impressions Chest X-Ray 08/14/17 17:37 Impression: 1. Acute pulmonary edema. 2. Good ET tube position. Procedures: Procedure: RSI Intubation Indication for the procedure was Respiratory failure. The patient was preoxygenated with 100% oxygen by face mask. The patient was sedated with etomidate and paralyzed with succinylcholine. The patient was orally endotracheally intubated under direct visualization with a 7.5 ETT. Tracheal intubation was confirmed with misting on the tube; breath sounds were auscultated equally bilaterally; appropriate color change with [place] End Tidal CO2 detector, capnography waveform is appropriate, oxygen saturation after procedure is 100%. Chest X-ray shows ETT in good position. The procedure was performed by myself. ED Course/Re-evaluation: The patient presents to the ED with respiratory failure and pulmonary edema. She was brought into the resuscitation room. The patient had been on CPAP prior to arrival. Her O2 sats were still in the mid 80s. The patient was obtunded and unable to provide any additional history. The patient underwent RSI intubation by myself. She was sedated with propofol following the procedure. Her heart rate did improve. She was noted to be hypertensive and was started on a nitroglycerin drip. Post intubation chest x-ray demonstrates the ET tube is in appropriate place. There is evidence of significant heart failure. The patient had Bolton catheter placed. She was noted to be febrile to 39 degrees. Blood cultures x2 obtained. Given our inability to exclude concurrent pneumonia she was started on vancomycin and Zosyn. The patient presents to the ED with evidence of severe sepsis as she is febrile with SIRS criteria. Her initial lactate is reassuring. The patient was not given fluids secondary to her underlying heart failure and hypertension. Differential Diagnosis: Differential diagnosis considered includes pulmonary edema, pneumonia, heart failure, pulmonary embolism, pneumonitis, aspiration, myocardial infarction Critical Care Time: Critical care time exclusive of procedures and exclusive of the PA's time was 55 minutes, performed by myself, Roddy Chase MD. The patient presents the ED with acute altered mental status and respiratory failure. She was noted to be febrile. She required intubation. She required emergent treatment of heart failure. She required comprehensive evaluation of possible sepsis and infection. - Data Points Laboratory Results: Laboratory Results 08/14/17 17:38 08/14/17 17:38 08/14/17 08/14/17 08/14/17 17:40 17:38 17:38 WBC RBC Hgb Hct MCV MCH MCHC RDW Plt Count MPV Neut % (Auto) Lymph % (Auto) [place] % (Auto) Eos % (Auto) Baso % (Auto) Nucleat RBC Rel Count Absolute Neuts (auto) Absolute Lymphs (auto) Absolute Monos (auto) Absolute Eos (auto) Absolute Basos (auto) Absolute Nucleated RBC Immature Gran % Immature Gran # PT 21.6 SEC H SEC (12.0-15.0) INR 1.87 H (0.83-1.16) Puncture Site RIGHT RADIAL Patient Temperature 37.0 DEGREES DEGREES pCO2 37 mmHg mmHg (34-38) pO2 88 mmHg H mmHg (65-75) Total CO2 25 mEq/L mEq/L (23-27) ABG pH 7.42 (7.35-7.45) ABG PO2/FiO2 Ratio 88 RATIO RATIO ABG HCO3 23 mEq/L mEq/L (22-26) ABG O2 Saturation 96 % H % (92-95) ABG Base Excess -0.3 mEq/L mEq/L (-2.5-2.5) ABG Lactic Acid 1.7 mmol/L H mmol/L (0.5-1.6) O2 Concentration % 100 % % (0-100) Actual Respiration Rate 14 Tidal Volume 600 End Tidal CO2 36 PEEP 5 Pressure Support 7 Sodium 139 mEq/L mEq/L (135-145) Potassium 5.0 mEq/L mEq/L (3.5-5.2) Chloride 101 mEq/L mEq/L (97-110) Carbon Dioxide 24 mEq/l mEq/l (22-31) Anion Gap 14 mEq/L mEq/L (8-16) BUN 23 mg/dL mg/dL (7-23) Creatinine 0.8 mg/dL mg/dL (0.6-1.0) Estimated GFR > 60 Glucose 359 mg/dL H mg/dL (70-100) Calcium 8.2 mg/dL L mg/dL (8.5-10.4) Troponin I < 0.012 ng/mL ng/mL (0.000-0.034) Specimen Hemolysis 123 08/14/17 17:38 WBC 7.85 10^3/uL 10^3/uL (3.80-9.50) RBC 4.73 10^6/uL 10^6/uL (4.18-5.33) Hgb 14.2 g/dL g/dL (12.6-16.3) Hct 44.3 % % (38.0-47.0) MCV 93.7 fL fL (81.5-99.8) MCH 30.0 pg pg (27.9-34.1) MCHC 32.1 g/dL L g/dL (32.4-36.7) RDW 15.1 % % (11.5-15.2) Plt Count 206 10^3/uL 10^3/uL (150-400) MPV 11.8 fL H fL (8.7-11.7) Neut % (Auto) 78.9 % H % (39.3-74.2) Lymph % (Auto) 13.1 % L % (15.0-45.0) [place] % (Auto) 6.2 % % (4.5-13.0) Eos % (Auto) 0.9 % % (0.6-7.6) Baso % (Auto) 0.6 % % (0.3-1.7) Nucleat RBC Rel Count 0.0 % % (0.0-0.2) Absolute Neuts (auto) 6.19 10^3/uL 10^3/uL (1.70-6.50) Absolute Lymphs (auto) 1.03 10^3/uL 10^3/uL (1.00-3.00) Absolute Monos (auto) 0.49 10^3/uL 10^3/uL (0.30-0.80) Absolute Eos (auto) 0.07 10^3/uL 10^3/uL (0.03-0.40) Absolute Basos (auto) 0.05 10^3/uL 10^3/uL (0.02-0.10) Absolute Nucleated RBC 0.00 10^3/uL 10^3/uL (0-0.01) Immature Gran % 0.3 % % (0.0-1.1) Immature Gran # 0.02 10^3/uL 10^3/uL (0.00-0.10) PT INR Puncture Site Patient Temperature pCO2 pO2 Total CO2 ABG pH ABG PO2/FiO2 Ratio ABG HCO3 ABG O2 Saturation ABG Base Excess ABG Lactic Acid O2 Concentration % Actual Respiration Rate Tidal Volume End Tidal CO2 PEEP Pressure Support Sodium Potassium Chloride Carbon Dioxide Anion Gap BUN Creatinine Estimated GFR Glucose Calcium Troponin I Specimen Hemolysis Medications Given: Propofol (Diprivan 10 Mg/Ml (Premix)) 100 mls @ 0 mls/hr IV CONT MARCELLA; Titrate PRN Reason: Protocol Stop: 02/10/18 17:59 Last Admin: 08/14/17 17:42 Dose: 100 mls Nitroglycerin/Dextrose (Nitroglycerin 200 Mcg/Ml (Premix)) 250 mls @ 0 mls/hr IV CONT MARCELLA; Titrate PRN Reason: Protocol Stop: 02/10/18 17:59 Last Admin: 08/14/17 17:54 Dose: 250 mls Discontinued Medications Acetaminophen (Tylenol Rectal) 1,000 mg SD Q4HRS PRN PRN Reason: Pain, Mild/Fever,Can't Take PO Stop: 02/10/18 18:10 Last Admin: 08/14/17 18:05 Dose: 1,000 mg Etomidate (Etomidate) 20 mg IVP EDNOW ONE Stop: 08/14/17 17:34 Last Admin: 08/14/17 17:41 Dose: 20 mg Furosemide (Lasix Injection) 40 mg IVP EDNOW ONE Stop: 08/14/17 17:38 Last Admin: 08/14/17 17:54 Dose: 40 mg Vancomycin/Sodium Chloride (Vancomycin 1 Gm (Premix)) 250 mls @ 250 mls/hr IV EDNOW ONE PRN Reason: Protocol Stop: 08/14/17 19:07 Last Admin: 08/14/17 18:30 Dose: 250 mls Sodium Chloride (Ns) 500 mls @ 1,000 mls/hr IV EDNOW ONE PRN Reason: Protocol Stop: 08/14/17 19:04 Last Admin: 08/14/17 18:20 Dose: 500 mls Succinylcholine Chloride (Quelicin) 150 mg IVP EDNOW ONE Stop: 08/14/17 17:34 Last Admin: 08/14/17 17:42 Dose: 150 mg Departure - Departure Disposition: [facility] Acute Clinical Impression: CHF (congestive heart failure), Respiratory failure, Atrial fibrillation with RVR, Severe sepsis Condition: Good
[2017-08-14] MEDS ORDERED: NITROGLYCERIN/DEXTROSE 250 ML IV SCH (18:00)
[2017-08-14] MEDS ORDERED: ACETAMINOPHEN 650 MG SUPP PR ONE (18:07)
[2017-08-14] MEDS ORDERED: PIPERACILLIN/TAZO 4.5 GM/DEX 100 ML IV ONE (18:08)
[2017-08-14] MEDS ORDERED: VANCOMYCIN HCL/NORMAL SALINE 250 ML IV ONE (18:08)
[2017-08-14 18:10] LABS: PLATELET COUNT 206 10^3/uL (150-400)
[2017-08-14] MEDS ORDERED: ACETAMINOPHEN 650 MG SUPP PR PRN (18:11)
[2017-08-14] MEDS ORDERED: NS 500 ML IV ONE (18:35)
[2017-08-14 18:36] LABS: INR 1.87 (0.83-1.16); PROTIME(PATIENT) 21.6 SEC (12.0-15.0)
[2017-08-14] MEDS ORDERED: ETOMIDATE 40 MG/20 ML INJ ONE (19:48)
[2017-08-14] MEDS ORDERED: ONDANSETRON DISINTEGRATING 4 MG TAB PO PRN (20:13)
[2017-08-14] MEDS ORDERED: ACETAMINOPHEN 325 MG TAB PO PRN (20:13)
[2017-08-14] MEDS ORDERED: ONDANSETRON 4 MG/2 ML VIAL IVP PRN (20:13)
[2017-08-14] MEDS ORDERED: DILTIAZEM 125 MG in D5W 125 ML IV SCH (20:30)
[2017-08-14] MEDS ORDERED: D5W 1,000 ML IV SCH (20:30)
--- NOTE | 2017-08-14 20:47 | GHP ---
[f rep st] HISTORY AND PHYSICAL DATE OF ADMISSION: 08/14/2017 CHIEF COMPLAINT: Respiratory distress. HISTORY OF PRESENT ILLNESS: This is a 62-year-old female who is chronically anticoagulated. Brought in emergently by paramedics to the ED. She was found obtunded by EMS and hypoxic. She was placed o n Z-Len. In the ED, she was found in similar condition. She was emergently intubated. She was note d to be very tachycardic, in atrial fibrillation, to about 180. Additional information was obtained by family. She has a history of fever. She had been diagnosed with strep throat at urgent care [facility]. Earlier today, she has been normal and did not sound dyspneic on the phone per family. PAST MEDICAL/SURGICAL HISTORY: 1. Schizophrenia. 2. Systolic CHF. 3. Atrial fibrillation. 4. Hypertension. 5. Diabetes mellitus type 2. 6. CVA. MEDICATIONS: Please see medication reconciliation. ALLERGIES: Morphine, Risperdal, sulfa. SOCIAL HISTORY: Unobtainable, given the patient's condition. FAMILY HISTORY: Unobtainable, given the patient's condition. REVIEW OF SYSTEMS: A 10-point review of systems is unobtainable, given her condition. PHYSICAL EXAM: VITAL SIGNS: Blood pressure 122/75, heart rate 112, respiration rate 14, saturating 99% on the ventilator. Temperature is 38.9. GENERAL: Mrs. Herrera is intubated female who opens he r eyes to sound. HEENT: An ET tube in place. CARDIOVASCULAR: Borderline tachycardic. There are n o murmurs, rubs, or gallops. PULMONARY: Coarse breath sounds bilaterally. ABDOMEN: Soft, nontende r, nondistended. She has normal bowel sounds. SKIN: Shows no rash. : Shows a Bolton in place. NEUROLOGIC: Shows her to be responding to sounds. A full neurologic exam is unobtainable. PSYCHIAT [place]: Also unobtainable. LAB DATA: White count is normal. Platelets are 206. INR is 1.8. ABG shows her to have a normal pH with a normal pCO2. Glucose is 359. She does not have a gap. Her chest x-ray shows diffuse bilateral infiltrates. I personally viewed and interpreted this. Her EKG, which I also viewed and interpreted, shows AFib with rapid ventricular response. The ventricula r rate is 155. Difficult to interpret EKG. IMPRESSION/PLAN: 1. Acute hypoxic respiratory failure: Suspect that this is likely diastolic decompensation in the s etting of atrial fibrillation with rapid ventricular response. Certainly also need to consider an at ypical diffuse pneumonia. She has received furosemide in the emergency department. We will continue this daily for now. She did have a good output to it. Agree with broad-spectrum empiric antibiotic s, given the critical nature of her illness as well as healthcare exposure. She will be treated with vancomycin and Zosyn as well as doxycycline. We will send respiratory viral PCR, sputum culture, pr ocalcitonin. She will continue to be intubated. She may be extubated tomorrow. 2. Schizophrenia: We will continue her psychiatric medications when they are reconciled. 3. Atrial fibrillation with rapid ventricular response: I believe she is anticoagulated with Xarelt o. Will continue this. We will continue rate control medications as well. We will start a diltiaze m drip tonight. 4. Diabetes mellitus type 2 with hyperglycemia: She is markedly hyperglycemic with no gap. Will pu t her on an insulin drip overnight. 5. Hypertension: Will restart her home medications when they are available. This should be taken c are of by diltiazem drip. 6. Code status: Full code. 7. Venous thromboembolism risk is high. I will give her Lovenox. BILLING: I spent 45 minutes of critical care time in the management of acute respiratory failure collette mackenzie Mrs. Herrera. /[id number]/MODL
[2017-08-14] MEDS: INSULIN REGULAR HUMAN 100 UNIT in NS 100 ML IV SCH (21:37)
[2017-08-14] MEDS: DOXYCYCLINE INJ 100 MG in NS 250 ML IV SCH (21:38)
[2017-08-14] MEDS: DILTIAZEM HCL/D5W 125 ML IV SCH (21:38)
[2017-08-14] MEDS: FAMOTIDINE 20 MG/NACL 50 ML IV SCH (22:13)
[2017-08-15] MEDS: PIPERACILLIN/TAZO 4.5 GM/DEX 100 ML IV SCH ×4 (01:19→20:09)
[2017-08-15 05:05] LABS: PLATELET COUNT 129 10^3/uL (150-400)
[2017-08-15] MEDS ORDERED: VANCOMYCIN 750 MG in NS 150 ML IV SCH (06:00)
[2017-08-15] MEDS: VANCOMYCIN 750 MG in NS 150 ML IV SCH ×2 (08:24→20:09)
[2017-08-15] MEDS: FAMOTIDINE 20 MG/NACL 50 ML IV SCH (08:30)
[2017-08-15] MEDS: PROPOFOL/EMULSION 100 ML IV SCH (08:31)
[2017-08-15] MEDS: DOXYCYCLINE INJ 100 MG in NS 250 ML IV SCH ×2 (08:32→20:55)
[2017-08-15] MEDS: CHLORHEXIDINE GLUCONATE 15 ML UDL PO SCH ×2 (08:57→22:09)
[2017-08-15] MEDS ORDERED: ENOXAPARIN 40 MG/0.4 ML SYR SC SCH (09:00)
[2017-08-15] MEDS ORDERED: FUROSEMIDE 40 MG/4 ML VIAL IVP SCH (09:00)
--- NOTE | 2017-08-15 09:59 | GCON ---
[f rep st] CONSULTATION PENSION FUND MANAGER CONSULTATION REASON FOR ADMISSION: Acute respiratory failure. HISTORY OF PRESENT ILLNESS: The patient is a 62-year-old white female with a past medical history in cluding schizophrenia, congestive heart failure, atrial fibrillation, hypertension, diabetes, stroke, osteoporosis. She was brought in via EMS after being found obtunded. In the emergency room, she was emergently intubated and placed on mechanical ventilation. She [facility]. The patient is unable to provide any history. All history is gleaned from the medical record. REVIEW OF SYSTEMS: A 10-point review of system was attempted, but unable secondary to sedation and m echanical ventilation. PAST MEDICAL HISTORY: Again significant for hypertension, osteoporosis, hypertension, noninsulin dep endent diabetes, congestive heart failure, atrial fibrillation, possibly schizoaffective disorder, bi polar type. ALLERGIES: Morphine, Risperdal and sulfa. SOCIAL HISTORY: History of tobacco abuse. No history of alcohol use. She is single. MEDICATIONS: At home include lisinopril, Levemir, atorvastatin, aspirin, Fosamax, calcium, Toprol-XL , fluoxetine and Risperdal. PHYSICAL EXAM: VITAL SIGNS: Blood pressure is 122/75, pulse 76, respirations 17. She is currently af ebrile. Oxygen saturation 98% on mechanical ventilation. GENERAL: She is a well-developed, well-sumit shed, 62-year-old, white female who is sedated and on mechanical ventilation. HEENT: Eyes are PERRLA, EOMI. Throat: Endotracheal tube is in good position. NECK: Supple. No cervical adenopathy. HEART: Re gular rate and rhythm with a 2/6 systolic murmur at left sternal border without radiation. LUNGS: Silva w diminished breath sounds, few bibasilar crackles, but no wheeze. ABDOMEN: Soft, nontender. Bowel so unds are present in all 4 quadrants. EXTREMITIES: No clubbing, cyanosis, or edema. LABORATORIES: White count 5.2, hemoglobin 11, hematocrit 34, platelet count is 129. Sodium 144, pota ssium 3.0, chloride 110, CO2 is 25, BUN 15, creatinine 0.6, glucose is 137, troponin is 0.027. BNP is elevated at 1790. Urinalysis pH 5, specific gravity 1.025, five to 10 WBCs, influenza A and B are ne gative. Arterial blood gas, pH 7.41, pCO2 of 43, pO2 of 85, bicarb 28, oxygen saturation 95%. This is on mechanical ventilation. IMV of 16, tidal volume of 600, +5 of PEEP, +7 of pressure support. Chest x-ray shows bilateral diffuse interstitial infiltrates versus pulmonary edema. There is some focalit y in the right lower lobe. IMPRESSION: 1. Acute hypoxemic respiratory failure is likely secondary to a combination of congestive heart fail ure, as well as an atypical pneumonia. 2. Schizophrenia. Query if this schizoaffective disorder, bipolar type, which is in her previous [facility] records from [facility]. 3. Atrial fibrillation. 4. Noninsulin dependent diabetes. 5. History of hypertension. RECOMMENDATIONS: 1. Agree with mechanical ventilation for now. Will assess for extubation later on today. 2. Agree with echocardiogram. 3. Aggressive diuresis. 4. Agree with current antibiotic coverage. 5. Aggressive blood sugar control. 6. DVT and PE prophylaxis. 7. Stress ulcer prophylaxis. 8. Potassium replacement. /[id number]/MODL
--- NOTE | 2017-08-15 10:58 | ECHO ---
[email or web address] [address] [address] Main: [phone] Fax: Transthoracic Echocardiogram Name: SE PHOENIX MR#: [id number] Study Date: 08/15/2017 Study Time: 08:05 AM Date of : 1955 Age: 62 year(s) Height: 170.2 cm (67 in.) Weight: 69.85 kg (154 lb.) BSA: 1.81 m2 Gender: Female Examination: Echo Indication: Respiratory failure, Pulmonary Edema, Intubated, A-fib Image Quality: Contrast: Requested by: Napoleon Jane BP: 190 mmHg/77 mmHg Heart Rate: Rhythm: Indication: Respiratory failure, Pulmonary Edema, Intubated, A-fib Procedure Staff Multicultural Internship: Narinder Barba RDCS Reading Physician: Efren Raza MD Requesting Provider: Conclusions: Normal size left ventricle. Mild to moderate LVH. Low normal left ventricular systolic function. EF is 51 %. The left atrium is mildly to moderately dilated. The right atrium is mildly dilated. Mild mitral valve leaflet calcification is present. Mild mitral valve regurgitation is present. Aortic valve is not well visualized. No aortic valve stenosis is present. The pulmonary artery pressure is moderately increased. No old studies for comparison. Measurements: Chambers Valvular Assessment AV/MV Valvular Assessment TV/PV Normal Normal Normal Name Value Range Name Value Range Name Value Range Ao Zahida (MM): 2.8 cm (2.2 cm-3.7 AV Vmax: 1.30 m/s (1 m/s-1.7 TR Vmax: 3.27 mm/s ( - ) cm) m/s) TR PGmax: 43 mmHg ( - ) IVSd (2D): 1.1 cm (0.6 cm-1.1 AV maxP mmHg ( - ) syst. PAP: 48 mmHg ( - ) cm) LVOT Vmax: 0.87 m/s (0.7 m/s-1.1 PV Vmax: 0.98 m/s (0.6 m/s-0.9 LVDd (2D): 4.6 cm (3.9 cm-5.3 m/s) m/s) cm) MV E Vmax: 1.39 m/s ( - ) PV PGmax: 4 mmHg ( - ) LVDs (2D): 3.5 cm (2.1 cm-4 cm) LVPWd (2D): 1.4 cm ( - ) LVEF (BP): 51 % (>=55 %) Continued Measurements: Patient: SE PHOENIX Study Date: 08/15/2017 Page 1 of 2 08:05 AM Chambers Valvular Assessment AV/MV Valvular Assessment TV/PV Name Value Name Value Name Value LADs Lon.9 cm MV E' Septal: 0.07 m/s CVP (est.): 5 mmHg LA Area: 24.4 cm2 MV E/E' Septal: 19.50 LA Volume: 78 ml MV E/E' Lateral: 13.80 LA Volume Index: 43.1 ml/m2 Findings: Left Ventricle: Normal size left ventricle. Mild to moderate LVH. Low normal left ventricular systolic function. EF is 51 %. The EF is estimated at 50%. . Right Ventricle: Normal size right ventricle. Left Atrium: The left atrium is mildly to moderately dilated. Right Atrium: The right atrium is mildly dilated. Mitral Valve: Mild mitral valve leaflet calcification is present. Mild mitral valve regurgitation is present. Aortic Valve: Aortic valve is not well visualized. Mild aortic cusp calcification is noted. No aortic valve stenosis is present. Tricuspid Valve: Mild tricuspid regurgitation is present. The pulmonary artery pressure is moderately increased. Pulmonic Valve: The pulmonic valve is normal in appearance and function. Aorta: The aorta is normal. Pericardium: Trivial anterior pericardial effusion. No echocardiographic evidence of hemodynamic compromise. (No Signature Object) Patient: SE PHOENIX Study Date: 08/15/2017 Page 2 of 2 08:05 AM [id number]
[2017-08-15] MEDS: DILTIAZEM HCL/D5W 125 ML IV SCH (11:05)
[2017-08-15] MEDS: INSULIN REGULAR HUMAN 100 UNIT in NS 100 ML IV SCH (11:23)
--- NOTE | 2017-08-15 11:49 | ASMTCASEMG ---
Living Arrangements What is your living Answers: Alone arrangement? Who do you live with? Type Of Residence What kind of residence do Answers: House you live in? Discharge Plan Comments Coordination Status Comments Notes: Patient is a 62yo female who is chronically anticoagulated. She was found obtunded and hypoxic by EMS and brought in emergently, then requiring intubation in the ER. Patient was admitted for acute hypoxic respiratory failure, hypertension, and hyperglycemia. Patient is schizophrenic. No therapies have been ordered to date. D/C plan TBD. CM will follow. Date Signed: 08/15/2017 11:48 AM Electronically Signed By:Virginia Gant LCSW
[2017-08-15] MEDS ORDERED: PROTOCOL POTASSIUM 1 DOSE MISC PRN ×2 (12:27→22:20)
--- NOTE | 2017-08-15 13:11 | HOSPPROG ---
Hospitalist Progress Note Assessment/Plan: #Acute Hypoxic Respiratory Failure #Likely Pneumonia #Systolic CHF with volume overload #Afib with RVR #DMII #Schizophrenia #chronic AC #Hypokalemia Plan: -Remains intubated. Pulm planning on possible extubation today -Diuresis. Increase Lasix -home meds when able to -Cardizem drip, transition to PO meds when she is able to take PO -While she is not able to take PO, she needs full AC, will start Lovenox which can be stopped once she is on her home meds -Cont broad spectrum abx: Doxy, Zosyn, and Vanco. Can hopefully deescalate soon. Check pc -cont current insulin mgmt -Replace K per protocol total cct on this patient who is in the ICU, intubated, with volume overload, and hx of anticoagulation and with pneumonia is 35 minutes Subjective: intubated, sedated Objective: Vital Signs Temp Pulse Resp BP Pulse Ox 38.9 C H 86 17 122/75 H 98 08/14/17 19:30 08/15/17 11:15 08/15/17 08:31 08/14/17 19:30 08/15/17 11:15 Microbiology 08/14/17 22:10 - Final Sputum, Induced/Suctioned Laboratory Results 08/15/17 04:50 08/15/17 04:50 08/14/17 08/15/17 08/16/17 05:59 05:59 05:59 Intake Total 1492 Output Total 2500 2675 Balance -1008 -2675 PT 21.6 SEC (12.0-15.0) H 08/14/17 17:38 INR 1.87 (0.83-1.16) H 08/14/17 17:38 - Physical Exam Eyes: PERRL Ears, Nose, Mouth, Throat: moist mucous membranes Cardiovascular: irregularly irregular, No edema Respiratory: reduced air movement Gastrointestinal: normoactive bowel sounds, No guarding, No distension Skin: warm Neurologic: No AAOx3 Psychiatric: encephalopathic Lymph, Heme, Immunologic: No petechiae ICD10 Worksheet Patient Problems: Problems Problem Status Onset Atrial fibrillation with RVR Acute CHF (congestive heart failure) Acute Respiratory failure Acute Severe sepsis Acute Acute exacerbation of congestive heart failure Acute Chest discomfort Acute Chronic Disease Mgmt/Transitional Care Acute Dyspnea Acute Elevated troponin Acute Hyperglycemia Acute Hyperglycemia without ketosis Acute Hypoxemia Acute Pulmonary edema Acute Schizophrenia Acute
[2017-08-15] MEDS ORDERED: ALENDRONATE SODIUM 70 MG TAB PO SCH (14:15)
--- NOTE | 2017-08-15 14:21 | PDMN ---
Medical Necessity Medical necessity: est los> 2mn for acute hypoxic resp failure likely diastolic decompensation in setting of afib w/rvr; r/o atypical diffuse PNA; admit to ICU , IV abx and Lasix; comorbid schizophrenia, DM, and HTN; per order and H&P
[2017-08-15] MEDS: RIVAROXABAN 20 MG TAB PO SCH ×2 (14:51→18:47)
[2017-08-15] MEDS: METOPROLOL SUCCINATE XR 100 MG TAB PO SCH (14:51)
[2017-08-15] MEDS ORDERED: POTASSIUM CL 20 MEQ TAB PO ONE ×2 (15:00→22:30)
[2017-08-15] MEDS ORDERED: POTASSIUM Cl (KCl) 100 ML IV SCH (15:00)
[2017-08-15] MEDS: INSULIN DETEMIR 25 UNIT SQ SCH (15:59)
[2017-08-15] MEDS ORDERED: D50W 25 GM/50 ML SYR IVP PRN (16:26)
[2017-08-15] MEDS: INSULIN REGULAR, HUMAN 100 UNIT/1 ML VIAL STANDARD SC SCH ×3 (16:51→22:23)
[2017-08-15] MEDS ORDERED: INSULIN DETEMIR SC ONE (18:40)
[2017-08-15] MEDS: FUROSEMIDE 40 MG/4 ML VIAL IVP SCH (21:12)
[2017-08-15] MEDS: risperiDONE 1 MG TAB PO SCH (21:12)
[2017-08-15] MEDS: ATORVASTATIN CALCIUM 20 MG TAB PO SCH (21:13)
[2017-08-16] MEDS: PIPERACILLIN/TAZO 4.5 GM/DEX 100 ML IV SCH ×2 (01:23→08:00)
[2017-08-16] MEDS: POTASSIUM Cl (KCl) 10 MEQ in NS 100 ML IV SCH ×4 (04:14→07:53)
[2017-08-16 06:14] LABS: PLATELET COUNT 154 10^3/uL (150-400)
[2017-08-16] MEDS: DOXYCYCLINE INJ 100 MG in NS 250 ML IV SCH ×2 (07:53→21:23)
[2017-08-16] MEDS: INSULIN REGULAR, HUMAN 100 UNIT/1 ML VIAL STANDARD SC SCH ×4 (07:55→21:14)
[2017-08-16] MEDS: CHLORHEXIDINE GLUCONATE 15 ML UDL PO SCH ×2 (07:56→21:23)
[2017-08-16] MEDS: VANCOMYCIN 750 MG in NS 150 ML IV SCH ×2 (08:00→13:36)
[2017-08-16] MEDS: ASPIRIN EC 81 MG TAB PO SCH (08:11)
[2017-08-16] MEDS: METOPROLOL SUCCINATE XR 100 MG TAB PO SCH (08:12)
[2017-08-16] MEDS: lamoTRIgine 25 MG TAB PO SCH (08:12)
[2017-08-16] MEDS: FLUoxetine 10 MG CAP PO SCH (08:12)
[2017-08-16] MEDS: FLUoxetine 20 MG CAP PO SCH (08:13)
--- NOTE | 2017-08-16 09:12 | PDINTPN ---
[employer] Progress Note Assessment/Plan: Assessment/plan: * Acute respiratory failure-stable off mechanical ventilation -wean FiO2 as tolerated * Congestive heart failure * Atrial fibrillation-stable * Non-insulin diabetes-blood sugars are stable * Hypertension-controlled * Diffuse infiltrates versus pulmonary edema -will recheck chest x-ray -wean down antibiotics * VTE prophylaxis * Nutrition-eating well * Disposition-will transfer to medical surgical floor Subjective: Sitting up in chair. Resting comfortably. Breathing easily off mechanical ventilation Objective: Vital Signs Temp Pulse Resp BP Pulse Ox 36.6 C 95 19 157/90 H 96 08/16/17 08:00 08/16/17 08:12 08/16/17 08:00 08/16/17 08:12 08/16/17 08:00 Microbiology 08/14/17 22:10 - Final Sputum, Induced/Suctioned Laboratory Results 08/16/17 05:00 08/16/17 05:00 08/15/17 08/16/17 08/17/17 05:59 05:59 05:59 Intake Total 1492 2277 Output Total 2500 5375 Balance -1008 -3098 PT 21.6 SEC (12.0-15.0) H 08/14/17 17:38 INR 1.87 (0.83-1.16) H 08/14/17 17:38 Laboratory Results 08/16/17 05:00 08/16/17 05:00 08/14/17 22:10 - Final Sputum, Induced/Suctioned Sputum Culture - Preliminary 08/14/17 18:15 Blood Culture - Preliminary Blood 08/14/17 18:03 Urine Culture - Preliminary Unspecified 08/14/17 18:02 Blood Culture - Preliminary Blood - Time Spent With Patient Time Spent With Patient: 25 min of time spent with patient, over 1/2 involved with coordination of care or counseling. Case discussed with respiratory therapy and nursing Physical Exam - Physical Exam General Appearance: WD/WN, alert, no apparent distress EENT: PERRL/EOMI, normal ENT inspection, pharynx normal, TMs normal Neck: non-tender, full range of motion, supple, normal inspection Respiratory: rhonchi (Few basilar), No respiratory distress, No wheezing Cardiac/Chest: normal peripheral pulses, regular rate, rhythm, systolic murmur Peripheral Pulses: 2+: carotid (R), carotid (L), femoral (R), femoral (L), dorsalis-pedis (R), dorsalis-pedis (L) Abdomen: normal bowel sounds, non-tender, soft Pelvic Exam: deferred Rectal: deferred Skin: normal color, warm/dry Extremities: normal range of motion, non-tender, normal inspection, normal capillary refill Neuro/Psych: no motor/sensory deficits, alert, normal mood/affect, oriented x 3 ICD10 Worksheet Patient Problems: Problems Problem Status Onset Atrial fibrillation with RVR Acute CHF (congestive heart failure) Acute Respiratory failure Acute Severe sepsis Acute Acute exacerbation of congestive heart failure Acute Chest discomfort Acute Chronic Disease Mgmt/Transitional Care Acute Dyspnea Acute Elevated troponin Acute Hyperglycemia Acute Hyperglycemia without ketosis Acute Hypoxemia Acute Pulmonary edema Acute Schizophrenia Acute
[2017-08-16] MEDS: INSULIN DETEMIR 25 UNIT SQ SCH ×3 (09:14→14:25)
[2017-08-16] MEDS: FUROSEMIDE 40 MG/4 ML VIAL IVP SCH (09:16)
[2017-08-16] MEDS ORDERED: VANCOMYCIN 1.25 GM in NS 250 ML IV SCH (09:30)
--- NOTE | 2017-08-16 10:51 | HOSPPROG ---
Hospitalist Progress Note Assessment/Plan: #Acute Hypoxic Respiratory Failure -extubated on 08/15 #CAP Pneumonia #Systolic CHF with volume overload #Afib with RVR #DMII #Schizophrenia, on Risperdal #chronic AC #Hypokalemia Plan: -Hold diuretics, volume status much improved, may need additional pending clinical course and CXR -repeat CXR pending -Stop Vancomycin and Zosyn, cont Doxy -cont Xarelto -Cont Metoprolol -Home Insulin, optimize glucose mgmt -Ok to transfer out of the ICU -Replace K per protocol Subjective: feels better, extubated. Objective: Vital Signs Temp Pulse Resp BP Pulse Ox 36.6 C 95 19 157/90 H 96 08/16/17 08:00 08/16/17 08:12 08/16/17 08:00 08/16/17 08:12 08/16/17 08:00 Microbiology 08/14/17 22:10 - Final Sputum, Induced/Suctioned Laboratory Results 08/16/17 05:00 08/16/17 05:00 08/15/17 08/16/17 08/17/17 05:59 05:59 05:59 Intake Total 1492 2277 Output Total 2500 5375 Balance -1008 -3098 PT 21.6 SEC (12.0-15.0) H 08/14/17 17:38 INR 1.87 (0.83-1.16) H 08/14/17 17:38 - Physical Exam Constitutional: no apparent distress Eyes: PERRL, EOMI Ears, Nose, Mouth, Throat: moist mucous membranes, hearing normal Cardiovascular: irregularly irregular, No edema Respiratory: no respiratory distress, reduced air movement, No clear to auscultation Gastrointestinal: normoactive bowel sounds, soft, non-tender abdomen Skin: warm Neurologic: AAOx3 Psychiatric: interacting appropriately, not anxious, not encephalopathic Lymph, Heme, Immunologic: No petechiae ICD10 Worksheet Patient Problems: Problems Problem Status Onset Atrial fibrillation with RVR Acute CHF (congestive heart failure) Acute Respiratory failure Acute Severe sepsis Acute Acute exacerbation of congestive heart failure Acute Chest discomfort Acute Chronic Disease Mgmt/Transitional Care Acute Dyspnea Acute Elevated troponin Acute Hyperglycemia Acute Hyperglycemia without ketosis Acute Hypoxemia Acute Pulmonary edema Acute Schizophrenia Acute
[2017-08-16] MEDS: RIVAROXABAN 20 MG TAB PO SCH (18:04)
[2017-08-16] MEDS ORDERED: POTASSIUM CL 10 MEQ TAB PO ONE (19:45)
[2017-08-16] MEDS: ATORVASTATIN CALCIUM 20 MG TAB PO SCH (21:14)
[2017-08-16] MEDS: risperiDONE 1 MG TAB PO SCH (21:14)
[2017-08-17] MEDS: METOPROLOL SUCCINATE XR 100 MG TAB PO SCH (08:58)
[2017-08-17] MEDS: FLUoxetine 20 MG CAP PO SCH (08:58)
[2017-08-17] MEDS: ASPIRIN EC 81 MG TAB PO SCH (08:59)
[2017-08-17] MEDS: INSULIN REGULAR, HUMAN 100 UNIT/1 ML VIAL STANDARD SC SCH ×4 (09:45→22:02)
[2017-08-17] MEDS ORDERED: POTASSIUM CL 10 MEQ TAB PO ONE ×3 (10:47→22:15)
[2017-08-17] MEDS: FLUoxetine 10 MG CAP PO SCH (11:04)
[2017-08-17] MEDS: lamoTRIgine 25 MG TAB PO SCH (11:05)
--- NOTE | 2017-08-17 11:05 | HOSPPROG ---
Hospitalist Progress Note Assessment/Plan: #Acute Hypoxic Respiratory Failure -extubated on 08/15, now on NC #CAP Pneumonia #Systolic CHF with volume overload #Afib with RVR #DMII #Schizophrenia, on Risperdal #chronic AC #Hypokalemia #HTN: BP 190's systolic today Plan: -restart Lisinopril 40 mg daily, cont Toprol -Cont Doxy -start Lasix 20mg daily -CXR in a.m. -cont Xarelto -Home Insulin, optimize glucose mgmt -Replace K per protocol -likely d/c tomorrow Subjective: feels better. BP is very elevated today. no cp. some SOB. not back to baseline Objective: Vital Signs Temp Pulse Resp BP Pulse Ox 36.8 C 85 14 179/104 H 95 08/17/17 08:00 08/17/17 10:15 08/17/17 08:00 08/17/17 10:15 08/17/17 10:15 Microbiology 08/14/17 22:10 - Final Sputum, Induced/Suctioned Sputum Culture - Final 08/14/17 18:03 Urine Culture - Final Unspecified Laboratory Results 08/16/17 05:00 08/17/17 08:45 08/16/17 08/17/17 08/18/17 05:59 05:59 05:59 Intake Total 2277 400 Output Total 5375 500 Balance -3098 -100 PT 21.6 SEC (12.0-15.0) H 08/14/17 17:38 INR 1.87 (0.83-1.16) H 08/14/17 17:38 - Physical Exam Constitutional: no apparent distress Eyes: PERRL Ears, Nose, Mouth, Throat: moist mucous membranes, hearing normal Cardiovascular: regular rate and rhythym, No edema Respiratory: reduced air movement Gastrointestinal: normoactive bowel sounds, soft, non-tender abdomen Skin: warm Neurologic: AAOx3 Psychiatric: interacting appropriately, not anxious, not encephalopathic Lymph, Heme, Immunologic: No petechiae ICD10 Worksheet Patient Problems: Problems Problem Status Onset Atrial fibrillation with RVR Acute CHF (congestive heart failure) Acute Respiratory failure Acute Severe sepsis Acute Acute exacerbation of congestive heart failure Acute Chest discomfort Acute Chronic Disease Mgmt/Transitional Care Acute Dyspnea Acute Elevated troponin Acute Hyperglycemia Acute Hyperglycemia without ketosis Acute Hypoxemia Acute Pulmonary edema Acute Schizophrenia Acute
[2017-08-17] MEDS: INSULIN GLARGINE 100 UNITS/ML UNIT SC SCH (11:06)
[2017-08-17] MEDS: LISINOPRIL 40 MG TAB PO SCH (11:06)
[2017-08-17] MEDS: CHLORHEXIDINE GLUCONATE 15 ML UDL PO SCH ×2 (12:37→21:57)
[2017-08-17] MEDS: DOXYCYCLINE INJ 100 MG in NS 250 ML IV SCH ×2 (13:06→21:56)
[2017-08-17] MEDS: FUROSEMIDE 20 MG TAB PO SCH (13:06)
--- NOTE | 2017-08-17 13:18 | ASMTCMCOM ---
CM Note CM Note Notes: Chart reviewed. Discussed with RN. Patient lives with her mother and other family members. No current needs identified. CM available should needs arise. Date Signed: 08/17/2017 01:17 PM Electronically Signed By:Alisson Allen RN
[2017-08-17] MEDS ORDERED: hydrALAZINE 20 MG/ML VIAL IVP PRN (15:20)
[2017-08-17] MEDS: RIVAROXABAN 20 MG TAB PO SCH (18:21)
[2017-08-17] MEDS: risperiDONE 1 MG TAB PO SCH (21:56)
[2017-08-17] MEDS: ATORVASTATIN CALCIUM 20 MG TAB PO SCH (21:57)
[2017-08-18] MEDS: CHLORHEXIDINE GLUCONATE 15 ML UDL PO SCH (07:35)
[2017-08-18] MEDS ORDERED: PROTOCOL POTASSIUM 1 DOSE MISC PRN (08:01)
[2017-08-18] MEDS: INSULIN REGULAR, HUMAN 100 UNIT/1 ML VIAL STANDARD SC SCH ×2 (08:20→13:06)
[2017-08-18] MEDS: DOXYCYCLINE INJ 100 MG in NS 250 ML IV SCH (08:42)
[2017-08-18] MEDS: FLUoxetine 20 MG CAP PO SCH (08:44)
[2017-08-18] MEDS: lamoTRIgine 25 MG TAB PO SCH (08:44)
[2017-08-18] MEDS: ASPIRIN EC 81 MG TAB PO SCH (08:44)
[2017-08-18] MEDS: FUROSEMIDE 20 MG TAB PO SCH (08:44)
[2017-08-18] MEDS: FLUoxetine 10 MG CAP PO SCH (08:44)
[2017-08-18] MEDS: LISINOPRIL 40 MG TAB PO SCH (08:44)
[2017-08-18] MEDS: METOPROLOL SUCCINATE XR 100 MG TAB PO SCH (08:44)
[2017-08-18] MEDS: INSULIN GLARGINE 100 UNITS/ML UNIT SC SCH (09:36)
[2017-08-18] MEDS ORDERED: POTASSIUM CL 10 MEQ TAB PO ONE (09:56)
[2017-08-18 12:15] VITALS: BP 139/95; PULSE 95; RESP 17; TEMP 98.5; O2SAT 89
--- NOTE | 2017-08-18 15:14 | PDDCSUM ---
Discharge Summary Discharge Summary: 62 yo female admitted with acute respiratory failure due to Pneumoni and CHF. She has been extubated and is back on RA. Please see below for details per problem list. DDX: #Acute Hypoxic Respiratory Failure -extubated on 08/15, now on RA -s/p IV diuretics -cont Lasix 20mg daily #CAP Pneumonia: Cont Doxy for 5 more days #Systolic CHF with volume overload #Afib with RVR #DMII #Schizophrenia, on Risperdal #chronic AC #Hypokalemia #HTN: Cont home meds. Exam: VSS, ra WAKING IN HALLS NAD AAOX3 RRR CTA B S/NT/ND NO EDEMA MEDS: SEE MED REC; new meds include Lasix 20g and Doxycycline x 5 more days F/U: WITH PCP IN ONE WEEK TOTAL TIME SPENT ON DISCHARGE IS 35 MINS D/W PATIENT AND NURSE.
== END 2017-08-18 17:34 | disposition home or self-care (01) | DRG 208 ==
LOC: EDUNIT# → F2N 19:39 → UNDODISIN 08-16 11:05 → F2W 08-16 15:35
PROVIDERS: ADMIT Student in an Organized Health Care Education/Training Program; ATTEND Family Medicine
PROC: 0BH17EZ Insertion of Endotracheal Airway into Trachea, Via Natural or Artificial Opening (ICD-10-PCS; principal; 2017-08-14)
PROC: 5A1935Z Respiratory Ventilation, Less than 24 Consecutive Hours (ICD-10-PCS; principal; 2017-08-14)
DX: J96.01 Acute respiratory failure with hypoxia (principal); I50.23 Acute on chronic systolic (congestive) heart failure; J18.9 Pneumonia, unspecified organism; F20.9 Schizophrenia, unspecified; I48.91 Unspecified atrial fibrillation; E11.65 Type 2 diabetes mellitus with hyperglycemia; I10 Essential (primary) hypertension; M81.0 Age-related osteoporosis without current pathological fracture; E87.6 Hypokalemia; Z86.73 Personal history of transient ischemic attack (TIA), and cerebral infarction without residual deficits; Z79.01 Long term (current) use of anticoagulants
CPT/HCPCS: 87449-90; 96365; 96366; J0330; J0360; J1650; J1815; J1940; J2405; J2543; J2704; J3370; J3480

== ENCOUNTER 2017-09-19 21:13 | Emergency (ER) | payer OTHER ==
--- NOTE | 2017-09-19 21:36 | EDPHY ---
H & P Stated Complaint: 2 DAYS INCREASING TALKING/THINKING/WALKING SLOW, FALL X2, CHANGING MEDS Source: Patient Exam Limitations: No limitations - Personal History Current Tetanus/Diphtheria Vaccine: Yes Tetanus Vaccine Date: within last 5 years - Medical/Surgical History Hx Asthma: No Hx Chronic Respiratory Disease: Yes Hx Diabetes: Yes Hx Cardiac Disease: Yes Hx Renal Disease: No Hx Cirrhosis: No Hx Alcoholism: No Hx HIV/AIDS: No Hx Splenectomy or Spleen Trauma: No Other PMH: COPD, schizophrenia, diabetes, biploar, htn, Afib, DM2,CVA, OSTEOPOROSIS - Social History Smoking Status: Current every day smoker Time Seen by Provider: 09/19/17 21:35 HPI/ROS: HPI: This is a 62-year-old female who presents with Chief Complaint: 2 DAYS INCREASING TALKING/THINKING/WALKING SLOW, FALL X2, CHANGING MEDS Location: body Quality:"Feels slowed" Duration: Several weeks Signs and Symptoms: No fever, no chest pain, no palpitation, no abdominal pain , no weakness, no radiation, no urinary symptoms, no nausea, no vomiting Timing: Daily Severity: Moderate Context: Patient has a history of CVA, atrial fibrillation, bipolar disorder on Xarelto presents with complaints of 2 week history of "feeling slowed" primarily over the last 2 days she has had increase of the slow knows of talking , thinking and walking. No actual focal deficits. She has was seen by Cardiology today and had a nuclear stress test that was normal per patient. She reports that 3 days ago her metoprolol was increased from 100 mg daily to 150 mg daily. Patient reports that over the last month; she has accidentally tripped over her feet and fallen. She denies actually losing consciousness/ dizziness/chest pain. Patient had been on Prozac for years and it was recently changed to Lexapro. Denies any urinary symptoms/abdominal pain/nausea/ vomiting. Patient reports that she has an appointment with her primary care provider, Dr. Pickens, October 01. Modifying Factors: Comment: ROS: see HPI Constitutional: No fever, no chills, no weight loss Eyes: No blurred vision Respiratory: No shortness of breath, no cough Cardiovascular: No chest pain Gastrointestinal: No nausea, no vomiting, no diarrhea Genitourinary: No dysuria Extremities: No myalgias Neurologic: No weakness, no numbness Skin: No rashes Hematologic: No bruising, no bleeding MEDICAL/SURGICAL/SOCIAL HISTORY: Medical history: COPD, schizophrenia, diabetes, biploar, htn, Afib, DM2, CVA, OSTEOPOROSIS Surgical history: Denies Social history: Family history noncontributory. CONSTITUTIONAL: awake and alert, no obvious distress HEENT: Atraumatic and normocephalic, PERRL, EOMI. Nares patent; no rhinorrhea; no nasal mucosal edema. Tympanic membranes clear. Oropharynx clear, no exudate and moist pink mucosa. Airway patent. No lymphadenopathy. No meningismus. Cardiovascular: Normal S1/S2, regular rate, regular rhythm, without murmur rub or gallop. PULMONARY/CHEST: Symmetrical and nontender. Clear to auscultation bilaterally. Good air movement. No accessory muscle usage. ABDOMEN: Soft, nondistended, nontender, no rebound, no guarding, no peritoneal signs, no masses or organomegaly. No CVAT. EXTREMITIES: 2/2 pulses, strength 5/5, no deformities, no clubbing, no cyanosis or edema. NEUROLOGICAL: no focal neuro deficits. GCS 15. SKIN: Warm and dry, no erythema. no rash. Good capillary refill. (Raghav,Terra) Constitutional: Initial Vital Signs Temperature (C) 36.6 C 09/19/17 21:14 Heart Rate 83 09/19/17 21:14 Respiratory Rate 16 09/19/17 21:14 Blood Pressure 187/119 H 09/19/17 21:14 O2 Sat (%) 96 09/19/17 21:14 O2 Delivery Mode Room Air Allergies/Adverse Reactions: morphine Allergy (Unknown, Verified 09/19/17 21:18) Sulfa (Sulfonamide Antibiotics) Allergy (Verified 09/19/17 21:18) Home Medications: Medication Instructions Recorded Albuterol [Proventil Inhaler HFA 1 - 2 puffs IH Q4H PRN 08/14/17 (*)] Alendronate Sodium [Fosamax 70 MG 70 mg PO Q7D 08/14/17 (*)] Aspirin EC [Aspirin EC 81 mg (*)] 81 mg PO DAILY 08/14/17 Atorvastatin Calcium [Lipitor 20 20 mg PO HS 08/14/17 mg (*)] Insulin Detemir [Levemir Flextouch] 25 unit SQ DAILY 08/14/17 Lisinopril [Zestril 40 mg (*)] 40 mg PO DAILY 08/14/17 Metoprolol Succinate Xr [Toprol Xl 100 mg PO DAILY 08/14/17 100 mg (*)] Rivaroxaban [Xarelto] 20 mg PO DAILY18 08/14/17 lamoTRIgine [LaMICtal] 25 mg PO DAILY 08/14/17 risperiDONE [Risperdal] 3 mg PO HS 08/14/17 Furosemide [Lasix 20 MG (*)] 20 mg PO DAILY #30 tab 08/18/17 Medical Decision Making - Diagnostics EKG Interpretation: EKG: Complete interpretation has been separately recorded in the [facility] archive. Summary impression: Atrial fibrillation, rate 80 (Roddy Chase) 12 lead EKG: Indication: Dizziness, history atrial fibrillation Rhythm: Atrial fibrillation, rate 80 beats per minute [place]: Normal Intervals: Normal QRS: Normal ST segments: Nonspecific changes T-waves: Nonspecific changes INTERPRETATION: No acute ischemic changes The 12 lead EKG was interpreted by myself. (Kavitha Avilez) Imaging Results: Imaging Impressions Chest X-Ray 09/19/17 21:36 Impression: Mild cardiac silhouette enlargement with peribronchial thickening, but no evidence of saman congestive heart failure or focal infiltrate. Head CT 09/19/17 21:44 Impression: Age-related atrophy and senescent features similar to 06/20/2016, with no acute intracranial abnormality identified on this unenhanced CT evaluation. If there is further clinical concern regarding the patient's symptoms, MR imaging is suggested, if not otherwise contraindicated. Findings were discussed with Kavitha Avilez PA-C at 22:28, on 09/19/2017. ED Course/Re-evaluation: Head CT scan, EKG, labs, chest x-ray, urinalysis ordered Vital signs reviewed upon arrival in stable. No neurological deficits. Afebrile without systemic signs EKG shows rate controlled atrial fibrillation-chronic; on Xarelto 2229: Called by radiologist who advised head CT scan shows no acute intracranial process. Unchanged from June [address] scan. 2248: Labs reviewed; proBNP elevated open compared to prior values at baseline. + mild normocytic anemia; potassium 3.4. Troponin negative Chest x-ray my read shows no opacity, no effusion, no pneumothorax 2350: Reassessed patient who reports that she feels better. Offered admission due to multiple medical problems. Patient politely declined. Mother at bedside reports that she feels safe to take patient home. They prefer to follow up with primary care provider and discuss polypharmacy. Urinalysis shows blood and trace LE, 5-10 WBC; asymptomatic; will not treat No signs of CVA/ACS/CHF/sepsis This patient was seen under the supervision of my secondary supervising physician. I evaluated care for this patient independently. Discussed this patient with Dr. Chase who did not see the patient. (Kavitha Avilez) Differential Diagnosis: Dizziness including but not limited to peripheral and central causes of vertigo , orthostatic causes including dehydration, and blood loss. (Kavitha Avilez) - Data Points Laboratory Results: Laboratory Results 09/19/17 21:57 09/19/17 21:57 09/19/17 09/19/17 09/19/17 23:05 22:55 21:57 WBC RBC Hgb Hct MCV MCH MCHC RDW Plt Count MPV Neut % (Auto) Lymph % (Auto) [place] % (Auto) Eos % (Auto) Baso % (Auto) Nucleat RBC Rel Count Absolute Neuts (auto) Absolute Lymphs (auto) Absolute Monos (auto) Absolute Eos (auto) Absolute Basos (auto) Absolute Nucleated RBC Immature Gran % Immature Gran # VBG Lactic Acid 0.8 mmol/L mmol/L (0.7-2.1) Sodium 142 mEq/L mEq/L (135-145) Potassium 3.4 mEq/L L mEq/L (3.5-5.2) Chloride 102 mEq/L mEq/L (97-110) Carbon Dioxide 30 mEq/l mEq/l (22-31) Anion Gap 10 mEq/L mEq/L (8-16) BUN 24 mg/dL H mg/dL (7-23) Creatinine 0.9 mg/dL mg/dL (0.6-1.0) Estimated GFR > 60 Glucose 162 mg/dL H mg/dL (70-100) Calcium 9.3 mg/dL mg/dL (8.5-10.4) Total Bilirubin 0.6 mg/dL mg/dL (0.1-1.4) Conjugated Bilirubin 0.4 mg/dL mg/dL (0.0-0.5) Unconjugated Bilirubin 0.2 mg/dL mg/dL (0.0-1.1) AST 24 IU/L IU/L (14-46) ALT 40 IU/L IU/L (9-52) Alkaline Phosphatase 74 IU/L IU/L (38-126) Troponin I < 0.012 ng/mL ng/mL (0.000-0.034) NT-Pro-B Natriuret Pep 1170 pg/mL H pg/mL (0-125) Total Protein 6.6 g/dL g/dL (6.3-8.2) Albumin 3.7 g/dL g/dL (3.5-5.0) Lipase 90 IU/L IU/L (23-300) TSH 1.570 uIU/mL uIU/mL (0.465-4.680) Urine Color YELLOW Urine Appearance CLEAR Urine pH 6.0 (5.0-7.5) Ur Specific [place] 1.017 (1.002-1.030) Urine Protein NEGATIVE (NEGATIVE) Urine Ketones NEGATIVE (NEGATIVE) Urine Blood 1+ H (NEGATIVE) Urine Nitrate NEGATIVE (NEGATIVE) Urine Bilirubin NEGATIVE (NEGATIVE) Urine Urobilinogen NEGATIVE EU EU (0.2-1.0) Ur Leukocyte Esterase TRACE H (NEGATIVE) Urine RBC 15-25 /hpf H /hpf (0-3) Urine WBC 5-10 /hpf H /hpf (0-3) Ur Epithelial Cells TRACE /lpf /lpf (NONE-1+) Urine Mucus TRACE /lpf /lpf (NONE-1+) Urine Glucose NEGATIVE (NEGATIVE) 09/19/17 21:57 WBC 9.10 10^3/uL 10^3/uL (3.80-9.50) RBC 4.02 10^6/uL L 10^6/uL (4.18-5.33) Hgb 12.1 g/dL L g/dL (12.6-16.3) Hct 37.4 % L % (38.0-47.0) MCV 93.0 fL fL (81.5-99.8) MCH 30.1 pg pg (27.9-34.1) MCHC 32.4 g/dL g/dL (32.4-36.7) RDW 15.0 % % (11.5-15.2) Plt Count 188 10^3/uL 10^3/uL (150-400) MPV 10.5 fL fL (8.7-11.7) Neut % (Auto) 76.3 % H % (39.3-74.2) Lymph % (Auto) 14.8 % L % (15.0-45.0) [place] % (Auto) 6.0 % % (4.5-13.0) Eos % (Auto) 2.1 % % (0.6-7.6) Baso % (Auto) 0.5 % % (0.3-1.7) Nucleat RBC Rel Count 0.0 % % (0.0-0.2) Absolute Neuts (auto) 6.93 10^3/uL H 10^3/uL (1.70-6.50) Absolute Lymphs (auto) 1.35 10^3/uL 10^3/uL (1.00-3.00) Absolute Monos (auto) 0.55 10^3/uL 10^3/uL (0.30-0.80) Absolute Eos (auto) 0.19 10^3/uL 10^3/uL (0.03-0.40) Absolute Basos (auto) 0.05 10^3/uL 10^3/uL (0.02-0.10) Absolute Nucleated RBC 0.00 10^3/uL 10^3/uL (0-0.01) Immature Gran % 0.3 % % (0.0-1.1) Immature Gran # 0.03 10^3/uL 10^3/uL (0.00-0.10) VBG Lactic Acid Sodium Potassium Chloride Carbon Dioxide Anion Gap BUN Creatinine Estimated GFR Glucose Calcium Total Bilirubin Conjugated Bilirubin Unconjugated Bilirubin AST ALT Alkaline Phosphatase Troponin I NT-Pro-B Natriuret Pep Total Protein Albumin Lipase TSH Urine Color Urine Appearance Urine pH Ur Specific [place] Urine Protein Urine Ketones Urine Blood Urine Nitrate Urine Bilirubin Urine Urobilinogen Ur Leukocyte Esterase Urine RBC Urine WBC Ur Epithelial Cells Urine Mucus Urine Glucose Departure - Departure Disposition: Home, Routine, Self-Care Clinical Impression: Polypharmacy, Medication side effects, Sluggishness Condition: Good Additional Instructions: Please follow-up with your primary care provider in 5-7 days to discuss all new medications and medication changes. Please follow fall precautions. Follow-Up: Please follow-up as noted above. Follow-up sooner if your condition worsens or if you develop any new problems. Call as soon as possible for an appointment. Be clear when you call for an appointment that this is an Emergency Department follow-up. Contact the Emergency Department if you have trouble arranging follow-up care. Our referrals are not based on your insurance network. When time allows, contact your insurance carrier to verify the referral physician is in your plan. If not, get a referral for an [place] network engineer. Return at once for any worsening symptoms or concerns. Referrals: Janeth Pickens MD [Doctor of Osteopathy] - As per Instructions
--- NOTE | 2017-09-19 21:50 | CPEKG ---
Heart Rate: 80 RR Interval: 750 QRSD Interval: 100 QT Interval: 384 QTC Interval: 443 QRS [place]: 65 T Wave [place]: 200 EKG Severity - ABNORMAL ECG - EKG Impression: ATRIAL FIBRILLATION EKG Impression: LVH WITH SECONDARY REPOLARIZATION ABNORMALITY Electronically Signed By: Roddy Chase 19-Sep-2017 23:24:32
[2017-09-19 22:13] LABS: PLATELET COUNT 188 10^3/uL (150-400)
[2017-09-20 00:13] VITALS: BP 193/102
== END 2017-09-20 00:12 | disposition home or self-care (01) ==
DX: R53.83 Other fatigue (principal); I10 Essential (primary) hypertension; E11.9 Type 2 diabetes mellitus without complications; J44.9 Chronic obstructive pulmonary disease, unspecified; F17.200 Nicotine dependence, unspecified, uncomplicated; T50.905A Adverse effect of unspecified drugs, medicaments and biological substances, initial encounter; Z79.4 Long term (current) use of insulin; Z86.73 Personal history of transient ischemic attack (TIA), and cerebral infarction without residual deficits; Z79.82 Long term (current) use of aspirin
CPT/HCPCS: A9500; J2785

== ENCOUNTER → 2017-09-19 | Outpatient (CLI) | payer OTHER | LOC: BHFA 13:00 | PROVIDERS: ATTEND Internal Medicine Cardiovascular Disease | DX: I48.91 Unspecified atrial fibrillation (principal); R06.02 Shortness of breath | CPT/HCPCS: 78452; 93017; A9500; J2785 ==

== ENCOUNTER → 2017-11-27 | Outpatient (CLI) | payer OTHER | LOC: BHFA 11:00 | PROVIDERS: ATTEND Internal Medicine Cardiovascular Disease | DX: I48.91 Unspecified atrial fibrillation (principal) ==

== ENCOUNTER 2017-12-14 13:00 | Emergency (ER) | payer OTHER ==
[2017-12-14] MEDS ORDERED: NS 500 ML IV ONE (13:25)
--- NOTE | 2017-12-14 13:39 | CPEKG ---
Heart Rate: 93 RR Interval: 645 QRSD Interval: 98 QT Interval: 412 QTC Interval: 513 QRS [place]: 76 T Wave [place]: 247 EKG Severity - ABNORMAL ECG - EKG Impression: ATRIAL FIBRILLATION EKG Impression: NONSPECIFIC REPOL ABNORMALITY, LATERAL LEADS EKG Impression: PROLONGED QT INTERVAL Electronically Signed By: Leonora Billings 14-Dec-2017 21:11:53
[2017-12-14 13:46] LABS: PLATELET COUNT 205 10^3/uL (150-400)
--- NOTE | 2017-12-14 13:47 | EDPHY ---
H & P Time Seen by Provider: 12/14/17 13:24 HPI/ROS: HPI Decreased energy, failure to thrive. 62-year-old female by private vehicle with her sister who is visiting from [facility]. This patient has a history of schizophrenia and bipolar 1 disorder. She is on multiple psychiatric medications. She also has a history of atrial fibrillation and is on a beta-jose. Her sister reports to me that she has displayed decreased levels of activity and increased fatigue markedly over the last week. She is normally very active and hikes. She had a mechanical fall yesterday when she was caring a box and tripped. She hit the right side of her head. The patient does not have any complaints at this time. She denies headache. No neck pain. Denies any loss of sensation or weakness in her extremities. No fever. No recent illness. ROS: Constitutional: No fever, no chills. As above. Eyes: No discharge. No changes in vision. ENT: No sore throat. No nasal congestion or rhinorrhea. Respiratory: No cough. No shortness of breath. Cardiac: No chest pain, no palpitations. Gastrointestinal: No abdominal pain, no vomiting, no diarrhea. Genitourinary: No hematuria. No dysuria or increased frequency with urination. Musculoskeletal: No back pain. No neck pain. No myalgias or arthralgias. Skin: No rashes. Neurological: No headache. No focal weakness or altered sensation. Past medical history: COPD, diabetes, hypertension, atrial fibrillation, osteoporosis, bipolar 1 disorder, schizophrenia. Please see medication list for further details. She is on Xarelto for her atrial fibrillation. She takes insulin. She also takes metoprolol 100 mg daily. She is on Lamictal and risperidone for her psychiatric disorders. Social history: She lives with her mother. Her sister is visiting from [facility] and is actively involved with her care as well. She is normally very active. She does not smoke currently. No alcohol. Physical Exam: General Appearance: Alert, flat affect, she is not in distress. This patient is responding to questions appropriately and in full sentences but requires some coaxing. This patient appears well-hydrated and well-nourished. Head/face: She has recent sutured biopsy sites from a dermatological procedure left maxilla, she has a faint right upper scalp hematoma. Otherwise normocephalic atraumatic. Eyes: Pupils equal and round no pallor or injection. No lid edema, erythema or injection. ENT, Mouth: Mucous membranes are moist. The pharyngeal tissues are unremarkable. No edema or swelling. No asymmetry suggestive of abscess. No erythema or exudates. No tongue lacerations or abrasions. Respiratory: There are no retractions, lungs are clear to auscultation with good air movement bilaterally. Cardiovascular: Irregular rhythm. No murmur. Gastrointestinal: Abdomen is soft and nontender, no masses, bowel sounds normal. No focal tenderness at McBurney's point. No Campa sign. Neurological: Motor sensory function is grossly intact. Cranial nerves are normal. On initial strength testing her electron gun inspector were weak and flaccid. However with encouragement strength testing in the bilateral upper and bilateral lower extremities revealed no significant deficit. Skin: Warm and dry, no rashes. Musculoskeletal: Neck is supple and nontender. No midline cervical, thoracic, lumbar tenderness on palpation. Extremities are symmetrical. All joints range without pain or impingement. Psychiatric: No agitation. No depression. Database: EKG: EKG time is 1:37 p.m.: EKG shows a atrial fibrillation with ventricular rate average of 93. There is a nonspecific conduction delay noted. QT interval corrected is 513. No ST, T-wave changes indicative of acute ischemic or injury pattern. Interpreted by me. Imaging: CT head without contrast: Negative. Results were discussed with staff radiologist. Procedures: Emergency department course: IV was placed. Vital signs reviewed. She is moderately hypertensive. Vital signs otherwise within normal limits. She was started on IV normal saline with 500 cc to be given over the next hour. EKG obtained and reviewed by myself. She will be sent for CT imaging of her head. Appropriate blood work to follow. 4:30 p.m., patient re-evaluated. Resting comfortably at this time. Repeat neurologic Assessment is nonfocal. Results of her emergency department workup discussed with her and her sister. Her workup has been reassuring. I feel her presentation is consistent with a medication reaction. Her daughter tells me that she recently had the doses of her Lamictal as well as risperidone increased. She states that since this time the patient has been more fatigued and not as engaging. I did discuss admission with the patient and her daughter. They do not want to be admitted at this time. They feel comfortable following up with the patient's psychiatrist and primary care physician for further evaluation and as needed adjustment of her psychiatric medications and dosing. The patient and daughter competently engage in shared decision making. They demonstrate capacitance to make decisions. I stressed the importance of follow-up. Return to emergency department precautions were thoroughly reviewed. All of their questions were answered. Under discharge was noted the patient's blood pressure has become markedly high at 205/101. When she came here her blood pressures were in the low 160s to upper 150s systolic. She is not sure she took her metoprolol this morning. Her heart rate has been in the low 60s with a narrow complex sinus rhythm on the monitor. At this time I do not feel that hypertensive encephalopathy is a reason for her presentation to the emergency department. However, her blood pressure is concerning. I do not want to re-dose her with metoprolol because she is unsure if she took her metoprolol this morning. She think she did. I will give her 5 mg of oral hydralazine and observe her for some time in the ED. 6:20 p.m., patient re-evaluated. She is now requesting discharge with her sister. Blood pressure is currently 191/105. She is denying any associated symptoms. Based on her EKG, blood work she does not show any evidence of end- organ damage. I do not believe her presentation is secondary to hypertensive encephalopathy. She now tells me that she has not been taking her blood pressure medication for over a month and is not sure she has any. She has asked me to refill her prescription until she can get in to see her primary care physician next week. This is metoprolol 100 mg XL, 1 p. O. Daily. I have agreed to give her a 1 week supply. She has been instructed to start taking this medication again tomorrow morning. Return to emergency department precautions were again thoroughly reviewed with her and her sister. All of their questions were answered. The patient was discharged in good condition. Differential Diagnosis: The differential diagnosis on this patient includes but is not limited to medication reaction, toxic metabolic problem, psychiatric issue. CVA, traumatic brain injury, hypothyroidism, acute coronary syndrome unlikely. This represents a partial list of diagnoses considered. These considerations are based on history, physical exam, past history, reassessment and diagnostic testing. Smoking Status: Former smoker Constitutional: Initial Vital Signs Temperature (C) 36.8 C 12/14/17 13:02 Heart Rate 90 12/14/17 13:02 Respiratory Rate 18 12/14/17 13:02 Blood Pressure 161/95 H 12/14/17 13:02 O2 Sat (%) 92 12/14/17 13:02 O2 Delivery Mode Room Air Allergies/Adverse Reactions: morphine Allergy (Unknown, Verified 12/14/17 13:07) Sulfa (Sulfonamide Antibiotics) Allergy (Verified 12/14/17 13:07) Home Medications: Medication Instructions Recorded Albuterol [Proventil Inhaler HFA 1 - 2 puffs IH Q4H PRN 08/14/17 (*)] Alendronate Sodium [Fosamax 70 MG 70 mg PO Q7D 08/14/17 (*)] Aspirin EC [Aspirin EC 81 mg (*)] 81 mg PO DAILY 08/14/17 Atorvastatin Calcium [Lipitor 20 20 mg PO HS 08/14/17 mg (*)] Insulin Detemir [Levemir Flextouch] 25 unit SQ DAILY 08/14/17 Lisinopril [Zestril 40 mg (*)] 40 mg PO DAILY 08/14/17 Metoprolol Succinate Xr [Toprol Xl 100 mg PO DAILY 08/14/17 100 mg (*)] Rivaroxaban [Xarelto] 20 mg PO DAILY18 08/14/17 lamoTRIgine [LaMICtal] 25 mg PO DAILY 08/14/17 risperiDONE [Risperdal] 3 mg PO HS 08/14/17 Furosemide [Lasix 20 MG (*)] 20 mg PO DAILY #30 tab 08/18/17 Metoprolol Succinate Xr [Toprol Xl 100 mg PO DAILY #7 tab 12/14/17 100 mg (*)] Medical Decision Making - Data Points Laboratory Results: Laboratory Results 12/14/17 13:27 12/14/17 13:27 Medications Given: Discontinued Medications Hydralazine HCl (Apresoline) 5 mg PO EDNOW ONE Stop: 12/14/17 17:00 Last Admin: 12/14/17 17:19 Dose: 5 mg Sodium Chloride (Ns) 500 mls @ 0 mls/hr IV EDNOW ONE; Wide Open PRN Reason: Protocol Stop: 12/14/17 13:26 Last Admin: 12/14/17 13:52 Dose: 500 mls Departure - Departure Disposition: Home, Routine, Self-Care Clinical Impression: Failure to thrive in adult, Medication reaction, Uncontrolled hypertension Condition: Good Instructions: Fatigue (ED) Additional Instructions: Read and follow provided instructions. Follow-up with your primary care physician, Dr. Pickens or psychiatrist through [facility], early next week for re-evaluation and discussion regarding adjustment of psychiatric medications and dosing. I feel your presentation is consistent with a medication reaction to your risperidone likely and possibly Lamictal. Continue taking her medication as prescribed at this time. Return to the emergency department for worsening symptoms or other serious concerns. Referrals: Janeth Pickens MD [Primary Care Provider] - As per Instructions [facility] [Outside] - As per Instructions Prescriptions: Metoprolol Succinate Xr [Toprol Xl 100 mg (*)] 100 mg PO DAILY #7 tab
[2017-12-14 13:52] LABS: CREATINE KINASE 55 IU/L (0-156)
[2017-12-14] MEDS ORDERED: hydrALAZINE 10 MG TAB PO ONE (16:59)
[2017-12-14 18:51] VITALS: BP 193/86
== END 2017-12-14 18:51 | disposition home or self-care (01) ==
DX: R62.7 Adult failure to thrive (principal); T44.7X5A Adverse effect of beta-adrenoreceptor antagonists, initial encounter; I10 Essential (primary) hypertension; J44.9 Chronic obstructive pulmonary disease, unspecified; E11.9 Type 2 diabetes mellitus without complications; E86.9 Volume depletion, unspecified; Z79.4 Long term (current) use of insulin; Z79.82 Long term (current) use of aspirin; Z87.891 Personal history of nicotine dependence
CPT/HCPCS: 80305; G0480

== ENCOUNTER 2018-04-20 05:18 | Emergency (ER) | payer OTHER ==
[2018-04-20] MEDS ORDERED: OXYMETAZOLINE 30 ML NASAL SPRAY ONE (05:35)
[2018-04-20] MEDS ORDERED: LIDOCAINE HCL 4% TOPICAL SOLN 50ML ONE (05:35)
[2018-04-20] MEDS ORDERED: SILVER NITRATE APPLICATOR 1 APPL TP ONE ×2 (05:35→05:48)
[2018-04-20] MEDS ORDERED: OXYMETAZOLINE 30 ML NASAL SPRAY EACHNARE ONE (05:49)
[2018-04-20] MEDS ORDERED: LIDOCAINE HCL 4% TOPICAL SOLN 50ML TP ONE (06:02)
--- NOTE | 2018-04-20 06:02 | EDPHY ---
H & P Stated Complaint: nose bleed for 5 hours Time Seen by Provider: 04/20/18 05:36 HPI/ROS: Chief Complaint: Nose bleed HPI: 62-year-old woman with a history of CVA in the past, on Xarelto, began having a nosebleed last night. She has been having intermittent nosebleeds for the last 2 days. This morning it started bleeding she has not been able to get it stopped with direct pressure as before. No lightheadedness or fainting. No chest pain or shortness of breath. No recent falls or traumas. ROS: 10 systems were reviewed and were negative except those elements noted in the HPI. PMH: CVA on Xarelto Social History: No smoking, no alcohol, no recreational drug use Family History: non-contributory Physical Exam: Gen: Awake, Alert, No Distress HEENT: Nose: Moderate oozing from the right nostril Eyes: PERRLA, EOMI Mouth: Moist mucosa Neck: Supple, no JVD Ext: no edema, non-tender Skin: no rash Neuro: CN II-XII intact, Sensation grossly intact, Strength 5/5 in bilateral upper and lower extremities - Personal History Current Tetanus/Diphtheria Vaccine: Yes Current Tetanus Diphtheria and Acellular Pertussis (TDAP): Yes Tetanus Vaccine Date: within last 5 years - Medical/Surgical History Hx Asthma: No Hx Chronic Respiratory Disease: Yes Hx Diabetes: Yes Hx Cardiac Disease: Yes Hx Renal Disease: No Hx Cirrhosis: No Hx Alcoholism: No Hx HIV/AIDS: No Hx Splenectomy or Spleen Trauma: No Other PMH: COPD, schizophrenia, diabetes, biploar, htn, Afib, DM2,CVA, OSTEOPOROSIS - Social History Smoking Status: Former smoker Constitutional: Initial Vital Signs Temperature (C) 36.9 C 04/20/18 05:21 Heart Rate 76 04/20/18 05:21 Respiratory Rate 16 04/20/18 05:21 Blood Pressure 174/80 H 04/20/18 05:21 O2 Sat (%) 94 04/20/18 05:21 O2 Delivery Mode Room Air Allergies/Adverse Reactions: morphine Allergy (Unknown, Verified 04/20/18 05:24) risperidone [From Risperdal] Allergy (Verified 04/20/18 05:24) Sulfa (Sulfonamide Antibiotics) Allergy (Verified 04/20/18 05:24) Home Medications: Medication Instructions Recorded Aspirin EC [Aspirin EC 81 mg (*)] 81 mg PO DAILY 08/14/17 Atorvastatin Calcium [Lipitor 20 20 mg PO HS 08/14/17 mg (*)] Insulin Detemir [Levemir Flextouch] 25 unit SQ DAILY 08/14/17 Lisinopril [Zestril 40 mg (*)] 40 mg PO DAILY 08/14/17 Metoprolol Succinate Xr [Toprol Xl 100 mg PO DAILY 08/14/17 100 mg (*)] Rivaroxaban [Xarelto] 20 mg PO DAILY18 08/14/17 lamoTRIgine [LaMICtal] 25 mg PO DAILY 08/14/17 Metoprolol Succinate Xr [Toprol Xl 100 mg PO DAILY #7 tab 12/14/17 100 mg (*)] Medical Decision Making Procedures: Procedure: Epistaxis control. After verbal consent was obtained, the patient was anesthetized with Darrel- Synephrine followed by 4% lidocaine. The anterior epistaxis was identified. The patient was treated with silver nitrate cautery. Following the procedure the patient was re-examined and the bleeding was well controlled. The patient tolerated the procedure well. The procedure was performed by myself. Departure - Departure Disposition: Home, Routine, Self-Care Clinical Impression: Acute anterior epistaxis Condition: Good Instructions: Nosebleed (ED) Additional Instructions: Make sure to get a humidifier for your house, particularly in the bedroom at night. If your nosebleed returns put on the nose clip and apply direct pressure for 30 min. If the bleeding continues return to the emergency department for further evaluation. Follow up with Ear Nose and Throat doctor in 3-4 days for further evaluation. Referrals: Janeth Pickens MD [Primary Care Provider] - As per Instructions Mason Mariscal MD [Medical Doctor] - As per Instructions
[2018-04-20] MEDS ORDERED: LISINOPRIL 20 MG TAB PO ONE ×2 (07:10→07:15)
[2018-04-20 07:18] VITALS: BP 218/120
[2018-04-20] MEDS ORDERED: METOPROLOL SUCCINATE XR 100 MG TAB PO SCH (09:00)
== END 2018-04-20 07:27 | disposition home or self-care (01) ==
PROC: 3E09XTZ Introduction of Destructive Agent into Nose, External Approach (ICD-10-PCS; principal; 2018-04-20)
DX: R04.0 Epistaxis (principal); Z86.73 Personal history of transient ischemic attack (TIA), and cerebral infarction without residual deficits; Z79.01 Long term (current) use of anticoagulants; E11.9 Type 2 diabetes mellitus without complications; Z79.899 Other long term (current) drug therapy

== ENCOUNTER 2018-05-29 10:19 | Emergency (ER) | payer OTHER ==
--- NOTE | 2018-05-29 11:59 | EDPHY ---
H & P Stated Complaint: L hand injury 3 days ago Time Seen by Provider: 05/29/18 10:54 HPI/ROS: Chief complaint: Left wrist injury History of present illness: This is a 62-year-old female who presents to the emergency department for a left wrist injury. She tripped and fell approximately 3 days ago. Since then she has had pain in the wrist. There is associated swelling. Worse with movement, better with rest. No report of open wounds, abnormal coolness or paresthesias in the arm. No other trauma reported. - Personal History Tetanus Vaccine Date: within last 5 years - Medical/Surgical History Hx Asthma: No Hx Chronic Respiratory Disease: Yes Hx Diabetes: Yes Hx Cardiac Disease: Yes Hx Renal Disease: No Hx Cirrhosis: No Hx Alcoholism: No Hx HIV/AIDS: No Hx Splenectomy or Spleen Trauma: No Other PMH: COPD, schizophrenia, diabetes, biploar, htn, Afib, DM2,CVA, OSTEOPOROSIS - Social History Smoking Status: Former smoker - Physical Exam Exam: General: Alert, nontoxic. Skin: There is edema to the left dorsal wrist. Musculoskeletal: Mild tenderness over the left dorsal wrist. The rest of the wrist and hand including the snuffbox are nontender. She is moving all digits in the left hand well. She is moving the wrist well although pain with extension. The rest of the left upper extremities unremarkable. Vascular: Radial pulses 2+. Capillary refill brisk in all digits of the left hand. Neurologic: Sensation intact throughout the left hand. Constitutional: Initial Vital Signs Temperature (C) 37.6 C 05/29/18 10:28 Heart Rate 69 05/29/18 10:28 Respiratory Rate 18 05/29/18 10:28 Blood Pressure 135/78 H 05/29/18 10:28 O2 Sat (%) 97 05/29/18 10:28 O2 Delivery Mode Room Air Allergies/Adverse Reactions: morphine Allergy (Unknown, Verified 05/29/18 10:27) risperidone [From Risperdal] Allergy (Verified 05/29/18 10:27) Sulfa (Sulfonamide Antibiotics) Allergy (Verified 05/29/18 10:27) Home Medications: Medication Instructions Recorded Aspirin EC [Aspirin EC 81 mg (*)] 81 mg PO DAILY 08/14/17 Atorvastatin Calcium [Lipitor 20 20 mg PO HS 08/14/17 mg (*)] Insulin Detemir [Levemir Flextouch] 25 unit SQ DAILY 08/14/17 Lisinopril [Zestril 40 mg (*)] 40 mg PO DAILY 08/14/17 Metoprolol Succinate Xr [Toprol Xl 100 mg PO DAILY 08/14/17 100 mg (*)] Rivaroxaban [Xarelto] 20 mg PO DAILY18 08/14/17 lamoTRIgine [LaMICtal] 25 mg PO DAILY 08/14/17 Metoprolol Succinate Xr [Toprol Xl 100 mg PO DAILY #7 tab 12/14/17 100 mg (*)] Medical Decision Making - Diagnostics Imaging Results: Imaging Impressions Wrist X-Ray 05/29/18 11:25 Impression: Negative. No acute fracture. Imaging: I viewed and interpreted images myself ED Course/Re-evaluation: Patient seen under the supervision of my secondary supervising physician Dr. David Lyn. Patient presents for a left wrist injury. The left upper extremity is neurovascularly intact. X-rays are negative. Likely sprain/ strain. Patient already has a Velcro volar splint that appears to splint her well. I have discussed using this for symptomatic care. Home care is discussed. She is referred to Orthopedics for recheck. Return precautions are given. The patient voiced understanding and agreement with plan Differential Diagnosis: Included but not limited to contusion, sprain or strain, bony fracture Departure - Departure Disposition: Home, Routine, Self-Care Clinical Impression: Wrist sprain Qualifiers: Encounter type: initial encounter Laterality: left Qualified Code(s): S63.502A - Unspecified sprain of left wrist, initial encounter Condition: Good Instructions: Wrist Sprain (ED) Additional Instructions: Follow-up with your primary care doctor or an orthopedic doctor for continued evaluation and care If symptoms worsen or new symptoms develop return to the emergency room for recheck Referrals: Janeth Pickens MD [Primary Care Provider] - As per Instructions Petey Soto MD [Medical Doctor] - As per Instructions
[2018-05-29 12:36] VITALS: BP 151/95
== END 2018-05-29 12:36 | disposition home or self-care (01) ==
DX: S63.502A Unspecified sprain of left wrist, initial encounter (principal); E11.9 Type 2 diabetes mellitus without complications; J44.9 Chronic obstructive pulmonary disease, unspecified; I10 Essential (primary) hypertension; M81.0 Age-related osteoporosis without current pathological fracture; W01.0XXA Fall on same level from slipping, tripping and stumbling without subsequent striking against object, initial encounter; Y92.9 Unspecified place or not applicable; Y93.9 Activity, unspecified; Y99.9 Unspecified external cause status; Z86.73 Personal history of transient ischemic attack (TIA), and cerebral infarction without residual deficits; Z88.0 Allergy status to penicillin; Z87.891 Personal history of nicotine dependence